=== PATIENT | female | born 2000 | race Hispanic/Latino ===

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

== ENCOUNTER 2023-05-24 11:59 | Emergency (ER) | payer MEDICAID, SELFPAY ==
[2023-05-24 12:00] VITALS: RESP 101
[2023-05-24 12:01] VITALS: BP 114/84; PULSE 139; RESP 16; TEMP 36.2; O2SAT 97; BMI 23.6
[2023-05-24] MEDS: 0.9% Normal Saline (1000mL) 1,000 ML 1000 ML IV (13:57)
[2023-05-24] MEDS: DiphenhydrAMINE 50 MG/ML Syringe 25 MG IV (13:57)
[2023-05-24] MEDS: MethylPREDNISolone 125 MG/2 ML Vial IV (13:57)
[2023-05-24] MEDS: Ondansetron 4 MG/2 ML Vial IV (13:57)
[2023-05-24] MEDS: Famotidine 200 MG/20 ML MDV 20 MG in 0.9% Normal Saline (Pres. free 8 ML 300 MG IV (14:15)
[2023-05-24 14:16] LABS: Anion Gap 10 (5-15); BUN 8 mg/dL (7-18); Calcium,Total 9.3 mg/dL (8.5-10.1); Chloride 98 mmol/L (98-107); EST Glomerular Filtration Rate 75 mL/min (>60); Est Glom Filt Rate - Afr Amer 91 mL/min (>60); Estimated Creatinine Clearance 67.72 ml/min; Glucose 110 mg/dL (74-106); Potassium 3.2 mmol/L (3.5-5.1); Sodium Level 135 mmol/L (136-145)
[2023-05-24 14:18] LABS: Absolute Lymphocyte Count 8.92 X10^3/uL (0.83-4.51); Absolute Neutrophil Count 2.6 X10^3/uL (2.0-7.7); Basophil# 0.07 X10^3/uL; Basophil% 0.5 % (0-1); Eosinophil# 0.09 X10^3/uL; Eosinophils% 0.7 % (0-5); Hematocrit 41.6 % (37-47); Hemoglobin 14.4 g/dL (12.0-15.0); Lymphocyte # 8.92 X10^3/ul (0.83-4.51); Lymphocyte % 65.3 % (19-41); Mean Corp Hgb Conc 34.6 g/dL (32-36); Mean Corpuscular Hgb 28.8 pg (27.0-32.0); Mean Corpuscular Volume 83.2 fL (81-99); Mean Platelet Vol. 10.6 fl (6.2-12.0); Monocyte# 1.86 X10^3/uL; Monocyte% 13.6 % (0-10); NRBC Flagged by Analyzer 0 % (0-5); Neutrophil % 19.1 % (47-70); POSITIVE DIFFERENTIAL YES; POSITIVE MORPHOLOGY YES; Platelet Count 217 K/mm3 (150-450); White Blood Count 13.7 K/mm3 (4.4-11.0)
[2023-05-24 14:30] LABS: Differential Indicated SCAN CRITERIA MET
[2023-05-24 16:00] VITALS: BP 115/72; PULSE 83; RESP 17; TEMP 36.7; O2SAT 99
--- NOTE | 2023-05-24 16:59 | EDS_ITS ---
HPI History of Present Illness Chief Complaint: Allergic Reaction Detail of Chief Complaint: Allergic reaction and viral-like symptoms Informant: patient Onset/Context/Timing Onset: Days (Viral-like symptoms started 3 to 4 days ago with Tmax of 102 ?F. She also has hives.) Context: Sudden Onset Timing: Continuous and Waxes and wanes Quality: Viral upper respiratory symptoms with GI component and urticaria Location: respiratory and generalized Current Severity: Mild Maximum Severity: Moderate Worsened by: itching and coughing Relieved by: Nothing Associated Symptoms Associated Symptoms: Nausea Narrative Narrative: Patient is a 22-year-old who presents with viral-like symptoms which include rhinorrhea, congestion, sore throat, slight cough that is nonproductive with nausea and mild diarrhea. She does complain of myalgias and arthralgias. She has had an elevated temperature of 102.3 ?F. She does complain of headache. She denies photophobia, neck pain or neck stiffness. She does endorse rash. The rash is raised discolored and pruritic. Patient does complain of cough. The cough is nonproductive. She denies wheezing. She has history of asthma. She has had bronchospasm when she has been ill. She denies dysuria, frequency, urgency or hematuria. Prior similar symptoms: Yes Recent Illness/Hospitalization: No PFSH PFSH Medical History Asthma Medical History no medical history Home Medications albuterol sulfate 90 mcg/actuation aerosol inhaler 1 - 2 puff inhalation Q6H PRN PRN Asthma 06/16/20 [History Last Taken Unknown] diphenhydramine HCl 25 mg capsule (Benadryl) 25 mg PO TID #10 caps 05/24/23 [Rx Last Taken Unknown] famotidine 20 mg tablet (Pepcid) 20 mg PO BID #7 tabs 05/24/23 [Rx Last Taken Unknown] prednisone 20 mg tablet 60 mg (3 x 20 mg) PO DAILY #12 TABLETS 05/24/23 [Rx Last Taken Unknown] Allergy/AdvReac Type Severity Reaction Status Date / Time No Known Allergies Allergy Verified 05/24/23 12:00 Surgical History Hx of removal of growth plate Surgical History no surgical history Social History household members: family Smoking Status: Former smoker alcohol intake: never what type of physical activity do you participate in: other frequency: daily duration: 30-45 minutes/day ROS ROS ED Constitutional Constitutional ED: Reports chills, fever(s) and sweats Eyes Eyes: Denies blurry vision, change in vision or diplopia ENT ENT ED: Reports rhinorrhea and sore throat; Denies ear pain Cardiovascular Cardiovascular: Reports palpitations; Denies chest pain, orthopnea, paroxysmal nocturnal dyspnea or racing heartbeat Respiratory/Chest Respiratory/Chest: Reports cough and dyspnea; Denies dyspnea on exertion, orthopnea, paroxysmal nocturnal dyspnea or sputum Gastrointestinal Gastrointestinal: Reports abdominal pain, diarrhea and nausea Genitourinary Genitourinary ED: Denies dysuria, hematuria or urinary frequency Musculoskeletal Musculoskeletal: Reports arthralgias and myalgias; Denies back pain Integumentary Reports rash Neurologic Neurologic: Reports headache(s) and weakness; Denies paresthesias Endocrine Endocrinology: Denies cold intolerance or heat intolerance Hematologic/Lymphatic Hematologic/Lymphatic: Reports systems reviewed and no addt'l complaints, except as documented EXAM Physical Exam Const Vital Signs: 05/24/23 12:01 05/24/23 12:00 Temperature 97.2 F L Temperature Source Temporal Pulse Rate 139 H Respiratory Rate 16 101 H Blood Pressure 114/84 H Blood Pressure Mean 94 Pulse Ox 97 Oxygen Delivery Method Room Air Positive well nourished and well developed Constitutional Narrative: Patient appears ill and pale. She does not appear toxic. She is not cyanotic. General Appearance ED: well developed and pallor; Negative for cyanotic, diaphoretic or NAD HEENT Reports moist mucous membranes HEENT Narrative: Head is normocephalic and atraumatic. Ears are normal. Nares are patent. Posterior pharynx is without erythema or exudate. Eyes PERRL and EOMs intact bilaterally General Eye ED: Negative for pale conjunctiva or scleral icterus Neck no lymphadenopathy, supple and no JVD Resp normal respiratory effort and clear to auscultation bilaterally Cardio regular rhythm, S1 normal heart sound, S2 normal heart sound and no murmurs Rate: tachycardic GI normal to inspection, nondistended, normoactive bowel sounds, non-tender, non- distended and no masses; Negative for hepatosplenomegaly Back/Spine no CVA tenderness Cervical Spine: Negative for cervical spine tenderness Thoracic Spine / Upper Back: Negative for thoracic spinal tenderness Lumbar Spine / Lower Back: Negative for lumbar spinal tenderness Extremity normal to inspection General Extremety ED: Negative for edema or tenderness General Extremity: Negative for edema Neuro oriented x3, CN's II-XII intact bilaterally and no sensory deficits noted Sensorium / Orientation: alert Psych mental status grossly normal Skin no wounds and skin turgor normal General Skin Exam: elasticity normal and pallor; Negative for jaundice Rashes: rashes noted MDM MDM MDM Narrative Medical decision making narrative: Patient presents with viral-like symptoms and is tachycardic. Because she has respiratory symptoms rapid antigen for influenza, COVID and RSV was obtained. Patient was treated with Pepcid, Solu-Medrol and Benadryl for her hives. She pr esently does not have a physician since she relocated to the area. Her friend has seen Dr. Felipe would like her referred to Dr. Felipe. Lab Data Attestation: I reviewed the patient's lab results. Lab results narrative: White count is elevated at 13.4 with lymphocytosis. This consistent with a viral infection. Rapid antigen for influenza, flu and RSV were negative. Labs: Laboratory Results - last 24 hr 05/24/23 12:05 WBC 13.7 H RBC 5.00 Hgb 14.4 Hct 41.6 MCV 83.2 MCH 28.8 MCHC 34.6 RDW Std Deviation 39.0 RDW Coeff of Ryley 13.0 Plt Count 217 MPV 10.6 Immature Gran % (Auto) 0.800 Neut % (Auto) 19.1 L Lymph % (Auto) 65.3 H [place] % (Auto) 13.6 H Eos % (Auto) 0.7 Baso % (Auto) 0.5 Absolute Neuts (auto) 2.6 Absolute Lymphs (auto) 8.92 H Nucleated RBC % 0 Diff Path Review May foll Sodium 135 L Potassium 3.2 L Chloride 98 Carbon Dioxide 27.0 Anion Gap 10 BUN 8 Creatinine 1.00 Estim Creat Clear Calc 67.72 Est GFR (MDRD) Af Amer 91 Est GFR (MDRD) Non-Af 75 BUN/Creatinine Ratio 8.0 L Glucose 110 H Calcium 9.3 Treatment and Re-Evaluation :: Patient was reevaluated at 1700. Her hives has essentially resolved 95+ percent. Plan is to discharge prescription for prednisone, Pepcid and Benadryl. She was referred to Dr. Felipe. She will need testing to determine the cause of her hives. Heart rate reduced from 1 39-83 after IV fluid hydration. Discharge Plan Triage Chief Complaint: Allergic Reaction ED Provider: Nils Ferrera Dx/Rx/DC Orders Clinical Impression: Systemic viral illness, Fever in adult, Sinus tachycardia seen on threat monitoring analyst, Urticaria of unknown origin, Acute dehydration Instructions: ED Hives (Adult), ED Viral Syndrome (Adult) Prescriptions: New prednisone 20 mg tablet 60 mg PO DAILY Qty: 12 0RF famotidine [Pepcid] 20 mg tablet 20 mg PO BID Qty: 7 0RF diphenhydramine HCl [Benadryl] 25 mg capsule 25 mg PO TID Qty: 10 0RF No Action albuterol sulfate 1 PUFF inhaler 1 - 2 puff INHALATION Q6H PRN PRN (Reason: Asthma) Primary Care Provider: Care Physician,No Primary Referrals: Kishor Felipe MD [Non-Staff] - 5-7 Days Care Physician,No Primary [Primary Care Provider] - Disposition Disposition: Home, Self Care
--- OUTSIDE RECORDS SUMMARY | 2023-05-24 17:21 | XMS RPT_ITS | CCD ---
Author Name Unknown Address [id number] [place] [address] Organization [facility] Care Team Providers Care Clinical Data Programmer Name Role Phone Ebenezer Eisenberg Primary Care Provider [phone] EBENEZER EISENBERG Attending Unavailable EBENEZER EISENBERG Primary Care Unavailable REFERRED, SELF Referring Unavailable Rubi Verduzco MD Primary Care Provider Unknown, Unknown Unavailable Unavailable Unavailable Unavailable AA NO PCP, NO PCP Primary Care Unavailable CARLITO CARTER DO Admitting Unavailabl CARLITO Edouard DO Attending Unavailabl e AA NO PCP, NO PCP Primary Care Unavailable NATALEE LOPEZ~[id number], NATALEE Fortune Admitting Unavailable NATALEE LOPEZ~[id number], NATALEE Fortune Attending Unavailable Rubi Verduzco MD Primary Care Provider [phone] PRUDENCE RODRIGUEZ Attending Unavailable RICARDO, RUBI Primary Care Unavailable PRUDENCE RODRIGUEZ Attending Unavailable RICARDO, RUBI Primary Care Unavailable MALDONADO BLUM Attending Unavailable RICARDO, RUBI Primary Care Unavailable RICARDO, RUBI Primary Care Unavailable RICARDO RUBI Attending Unavailable PRUDENCE RODRIGUEZ Attending Unavailable RICARDO, RUBI Primary Care Unavailable RICARDO, RUBI Primary Care Unavailable LOPARO, MAETINEE Referring Unavailable RICARDO, RUBI Primary Care Unavailable UNKNOWN, UNKNOWN Primary Care Unavailable Bryanna Delatorre Referring Unavailable Bryanna Delatorre Attending Unavailable Bryanna Delatorre Attending Unavailable UNKNOWN, UNKNOWN Primary Care Unavailable Bryanna Delatorre Referring Unavailable Ms. Mary Sheehan Referring U joan Sehehan, Ms. Mary Aguirre Attending U callumable UNKNOWN, UNKNOWN Primary Care Unavailable UNKNOWN, UNKNOWN Primary Care Unavailable Banerjee , Mr. Kishor Soni Referring Unava ilable Chriss Marie, Mr. Kishor Soni Attending [facility] Medications Current Medications Medication Drug Class(es) Dates Sig (Normalized) Sig (Original) albuterol 0.83 mg/ml inhalation solution (12 sources) beta2-Adrenergic Agonist Start: 08-04-2022 End: 08-04-2023 albuterol (2.5 MG/3ML) 0.083% nebulizer solution Indications: Mild persistent asthma with acute exacerbation Take 3 mL (2.5 mg) by nebulization in the morning and 3 mL (2.5 mg) at noon and 3 mL (2.5 mg) in the evening. 75 mL 11 08/04/2022 08/04/2023 Active Completed/Discontinued Medications Medication Drug Class(es) Dates Sig (Normalized) Sig (Original) aluminum chloride 200 mg/ml topical solution (1 source) Start: 10-30-2017 End: 06-07-2022 aluminum chloride (DRYSOL) 20 % external solution Apply thin layer to axilla area bilaterally daily to bid 0 10/30/2017 06/07/2022 Discontinued (Discontinued by Patient) Problems Active Problems Problem Classification Problem Date Documented Date Episodic/Chronic Allergic reactions (2 sources) Allergy, unspecified, initial encounter; Translations: [Allergy, unspecified, initial encounter] Onset: 11-07-2022 Episodic Anxiety disorders (12 sources) Posttraumatic stress disorder; Translations: [Post-traumatic stress disorder, unspecified] Onset: 10-29-2017 02-11-2018 Chronic Asthma (13 sources) Asthma; Translations: [Unspecified asthma, uncomplicated] Onset: 01-21-2013 02-11-2018 Chronic Attention-deficit, conduct, and disruptive behavior disorders (10 sources) Attention deficit hyperactivity disorder, combined type; Translations: [Attention-deficit hyperactivity disorder, combined type] Onset: 12-19-2017 02-11-2018 Chronic Attention-deficit, conduct, and disruptive behavior disorders (2 sources) Attention-deficit hyperactivity disorder, combined type; Translations: [Attention-deficit hyperactivity disorder, combined type] Onset: 09-05-2022 Chronic Cardiac dysrhythmias (2 sources) Palpitations; Translations: [Palpitations] Onset: 11-14-2022 Episodic Malaise and fatigue (2 sources) Other fatigue; Translations: [Other fatigue] Onset: 11-07-2022 Episodic Mood disorders (5 sources) Recurrent major depressive episodes, moderate ; Translations: [Major depressive disorder, recurrent, moderate] Onset: 11-07-2022 Chronic Mycoses (5 sources) Opportunistic mycosis; Translations: [Candidiasis of unspecified site] Episodic Nonspecific chest pain (2 sources) Chest pain; Translations: [Chest Pain] Onset: 11-13-2022 Episodic Other circulatory disease (5 sources) Pulmonary congestion ; Translations: [Other symptoms involving respiratory system and chest] Episodic Other lower respiratory disease (2 sources) Cough; Translations: [Cough] Episodic Other upper respiratory infections (10 sources) Upper respiratory infection; Translations: [Acute upper respiratory infections of unspecified site] Episodic Otitis media and related conditions (5 sources) Acute right otitis media; Translations: [Unspecified otitis media] Episodic Residual codes; unclassified (2 sources) Generalized aches and pains; Translations: [Generalized pain] Episodic Unclassified (1 source) NO SHOW Past or Other Problems Problem Classification Problem Date Documented Da te Episodic/Chronic Administrative/social admission (2 sources) Persons encountering health services in other specified circumstances; Translations: [Persons encountering health services in other specified circumstances] Onset: 08-04-2022 Episodic Fluid and electrolyte disorders (1 source) Dehydration; Translations: [DEHYDRATION] Onset: 05-25-2022 Episodic Genitourinary symptoms and ill-defined conditions (2 sources) Dysuria; Translations: [Dysuria] Onset: 08-04-2022 Episodic Mood disorders (5 sources) Mood disorders Onset: 09-29-2022 Resolved: 11-07-2022 09-29-2022 Nausea and vomiting (2 sources) Nausea with vomiting, unspecified; Translations: [NAUSEA WITH VOMITING UNSPECIFIED] Onset: 05-25-2022 Episodic Nonmalignant breast conditions (2 sources) Other specified disorders of breast; Translations: [Other specified disorders of breast] Onset: 08-04-2022 Episodic Other gastrointestinal disorders (1 source) Diarrhea, unspecified; Translations: [DIARRHEA UNSPECIFIED] Onset: 05-25-2022 Episodic Substance-related disorders (1 source) Cannabis use, unspecified, uncomplicated; Translations: [CANNABIS USE UNS UNCOMPLICATED] Onset: 05-25-2022 Episodic Results Test Name Value Interpretation Reference Range Facil ity Vital Signs Date Time Vital Sign Value Performing Clinician Facility 02-05-2023 09:59-0400 Body temperature 98.9 [degF] Unknown Unknown [facility] Work Phone: 02-05-2023 09:59-0400 Body weight 64.92 kg Unknown Unknown [facility] Work Phone: 02-05-2023 09:59-0400 Diastolic blood pressure 76 mm[Hg] Unknown Unknown [facility] Work Phone: 02-05-2023 09:59-0400 Heart rate 119 /min Unknown Unknown [facility] Work Phone: 02-05-2023 09:59-0400 SaO2% (BldA) [Mass fraction] 95 % Unknown Unknown [facility] Work Phone: 02-05-2023 09:59-0400 Systolic blood pressure 119 mm[Hg] Unknown Unknown [facility] Work Phone: 11-06-2022 11:07-0400 Body mass index (BMI) [Ratio] Medical Reason Not Done Unknown Unknown [facility] Work Phone: 11-06-2022 11:07-0400 Body temperature 98.3 [degF] Unknown Unknown [facility] Work Phone: 11-06-2022 11:07-0400 Body weight 67.59 kg Unknown Unknown [facility] Work Phone: 11-06-2022 11:07-0400 Diastolic blood pressure 83 mm[Hg] Unknown Unknown [facility] Work Phone: 11-06-2022 11:07-0400 Heart rate 71 /min Unknown Unknown [facility] Work Phone: 11-06-2022 11:07-0400 SaO2% (BldA) [Mass fraction] 97 % Unknown Unknown [facility] Work Phone: 11-06-2022 11:07-0400 Systolic blood pressure 123 mm[Hg] Unknown Unknown [facility] Work Phone: 10-14-2022 10:34-0400 Body temperature 98.7 [degF] Unknown Unknown [facility] Work Phone: 10-14-2022 10:34-0400 Body weight 65.32 kg Unknown Unknown [facility] Work Phone: 10-14-2022 10:34-0400 Diastolic blood pressure 86 mm[Hg] Unknown Unknown [facility] Work Phone: 10-14-2022 10:34-0400 Heart rate 90 /min Unknown Unknown [facility] Work Phone: 10-14-2022 10:34-0400 Systolic blood pressure 114 mm[Hg] Unknown Unknown [facility] Work Phone: 10-09-2022 14:29-0400 Body temperature 98.2 [degF] Unknown Unknown [facility] Work Phone: 10-09-2022 14:29-0400 Body weight 66.68 kg Unknown Unknown [facility] Work Phone: 10-09-2022 14:29-0400 Diastolic blood pressure 84 mm[Hg] Unknown Unknown [facility] Work Phone: 10-09-2022 14:29-0400 Heart rate 110 /min Unknown Unknown [facility] Work Phone: 10-09-2022 14:29-0400 SaO2% (BldA) [Mass fraction] 96 % Unknown Unknown [facility] Work Phone: 10-09-2022 14:29-0400 Systolic blood pressure 120 mm[Hg] Unknown Unknown [facility] Work Phone: Encounters Encounter Date Encounter Type Care Provider Facility Start: 02-05-2023 Chart Update Unknown Unknown [facility] Work Phone: Start: 02-05-2023 ambulatory Ms. Mary Sheehan Facility:[id number] Start: 02-05-2023 Office outpatient vi sit 25 minutes Unknown Unknown [facility] Work Phone: Start: 01-24-2023 Criselda Verduzco MD Work Phone: [facility] Procedures Date Procedure Procedure Detail Performing Clinician Start: 11-13-2022 Ecg routine ecg w/le ast 12 lds trcg only w/o i&r Severiano Castaneda CABLE LACER - HAND CULTIVATOR Work Phone: Plan of Treatment Date Care Activity Detail Author Start: 2052 Zoster Vaccines (1 of 2) Zoster Vaccines (1 of 2) [facility] Start: 08-17-2024 DTaP/Tdap/Td Vaccines (7 - Td or Tdap) DTaP/Tdap/Td Vaccines (7 - Td or Tdap) [facility] Start: 08-17-2024 Urine microalbumin profile DTAP,TDAP,TD (7 - Td or Tdap) [facility] Start: 06-07-2023 ANNUAL PCP TEAM CHRONIC DISEASE VISIT ANNUAL PCP TEAM CHRONIC DISEASE VISIT [facility] Start: 05-09-2023 Depresssion Monitoring Depresssion Monitoring [facility] Start: 04-01-2023 Depresssion Monitoring Depresssion Monitoring [facility] Start: 03-06-2023 End: 03-06-2023 Patient encounter procedure 03/06/2023 11:40 AM EDT Office Visit [facility] [address] [place] [address] [address] [place] [id number] Rubi Verduzco MD [address] [place] [address] [address] [place], [place] [address] [facility] Start: 01-19-2023 Influenza vaccination [facility] Start: 12-05-2022 End: 12-05-2022 Patient encounter procedure [facility] Start: 11-22-2022 End: 11-22-2022 Patient encounter procedure 11/22/2022 8:30 AM EDT Office Visit [facility] [address] [place] [phone] Marisol Mckinnon MD [address] [facility] [place], [place] [id number] [facility] Start: 11-14-2022 End: 11-14-2022 Telemedicine consultation with patient 11/14/2022 1:40 PM EDT Telemedicine [facility] [address] [place] [address] Prudence Rodriguez, CABLE LACER - HAND CULTIVATOR [address] [place], [place] [id number] [facility] Start: 11-10-2022 End: 11-10-2022 Telemedicine consultation with patient 11/10/2022 Telemedicine Family Medicine Rubi Verduzco MD [address] [facility] [address] [place], [place] [address] [facility] Start: 10-11-2022 End: 10-11-2022 Patient encounter procedure 10/11/2022 Office Visit Plastic Surgery Marisol Mckinnon MD [address] [facility] [address] [place], [place] [address] [facility] Start: 09-08-2022 End: 09-08-2022 Patient encounter procedure 09/08/2022 Office Visit Plastic Surgery Juliane Gonzalez MD [address] [facility] [address] [place], [place] [id number] [facility] Start: 05-21-2022 DEPRESSION ASSESSMENT DEPRESSION ASSESSMENT [facility] Start: 01-19-2022 Influenza vaccination INFLUENZA (#1) [facility] Start: 07-23-2021 CHLAMYDIA SCREENING (18-24) CHLAMYDIA SCREENING (18-24) [facility] Start: 07-23-2021 GC (GONORRHEA) SCREENING (18-24) GC (GONORRHEA) SCREENING (18-24) [facility] Start: 2021 DTaP/Tdap/Td Vaccines (1 - Tdap) DTaP/Tdap/Td Vaccines (1 - Tdap) [facility] Start: 09-15-2020 COVID-19 VACCINE (2 - Pfizer series) COVID-19 VACCINE (2 - Pfizer series) [facility] Start: 2020 HEPATITIS C SCREENING HEPATITIS C SCREENING [facility] Start: 2020 Hepatitis C screening Hepatitis C Screening [facility] Start: 2020 HIV SCREENING HIV SCREENING [facility] Start: [address] [facility] Start: 2016 PEDS TO ADULT TRANSITION ANNUAL ASSESSMENT PEDS TO ADULT TRANSITION ANNUAL ASSESSMENT [facility] Start: 2014 PEDS TO ADULT TRANSITION INITIAL DISCUSSION PEDS TO ADULT TRANSITION INITIAL DISCUSSION [facility] Start: 2013 HPV Vaccines (1 - 2-dose series) HPV Vaccines (1 - 2-dose series) [facility] Start: 2008 PNEUMOCOCCAL (1 - PCV) PNEUMOCOCCAL (1 - PCV) [facility] Start: 2006 ASTHMA CONTROL TEST ASTHMA CONTROL TEST [facility] Start: 2004 ASTHMA ACTION PLAN ASTHMA ACTION PLAN [facility] Start: 2003 MMR Vaccines (1 of 1 - Standard series) MMR Vaccines (1 of 1 - Standard series) [facility] Start: 2003 Varicella vaccination Varicella Vaccines (1 of 2 - 2-dose childhood series) [facility] Start: 2002 COVID-19 Vaccine (#1) COVID-19 Vaccine (#1) [facility] Start: 2002 Hepatitis B Vaccines (1 of 3 - 3-dose series) Hepatitis B Vaccines (1 of 3 - 3-dose series) [facility] Start: 2002 HIV screening HIV Screening [facility] Start: 2002 Screening for Chlamydia trachomatis Chlamydia and Gonorrhea Screening [facility] Immunizations Immunization Date Immunization Notes Care Provider Fa cili 04-13-2020 meningococcal B vacc ine, recombinant, OMV, adjuvanted Jaleesa Steinberg PA-C Work Phone: [facility] Work Phone: 02-20-2020 influenza, injectabl e, quadrivalent, preservative free Jaleesa Steinberg PA-C Work Phone: [facility] Work Phone: 02-20-2020 meningococcal B vacc ine, recombinant, OMV, adjuvanted Jaleesa Steinberg PA-C Work Phone: [facility] Work Phone: 02-20-2020 influenza virus vacc ine, unspecified formulation Juliane Gonzalez MD Work Phone: [facility] 02-06-2019 meningococcal polysaccharide (groups A, C, Y and W-135) diphtheria toxoid conjugate vaccine (MCV4P) Jaleesa Steinberg PA-C Work Phone: [facility] Work Phone: 02-25-2015 influenza, seasonal, injectable Jaleesa Steinberg PA-C Work Phone: [facility] Work Phone: 12-17-2014 human papilloma viru s vaccine, quadrivalent Jaleesa Steinberg PA-C Work Phone: [facility] Work Phone: 08-17-2014 human papilloma viru s vaccine, quadrivalent Jaleesa Steinberg PA-C Work Phone: [facility] Work Phone: 08-17-2014 meningococcal polysaccharide (groups A, C, Y and W-135) diphtheria toxoid conjugate vaccine (MCV4P) Jaleesa Steinberg PA-C Work Phone: [facility] Work Phone: 08-17-2014 tetanus toxoid, redu cristiana diphtheria toxoid, and acellular pertussis vaccine, adsorbed Jaleesa Steinberg PA-C Work Phone: [facility] Work Phone: 06-18-2014 human papilloma viru s vaccine, quadrivalent Jaleesa Steinberg PA-C Work Phone: [facility] Work Phone: 02-22-2010 influenza, seasonal, injectable, preservative free Jaleesa Maryan BUSTAMANTE Work Phone: [facility] Work Phone: 04-14-2009 influenza, seasonal, injectable, preservative free Jaleesa Maryan BUSTAMANTE Work Phone: [facility] Work Phone: 04-14-2009 novel influenza-H1N1 -09, preservative-free, injectable Jaleesa Maryan BUSTAMANTE Work Phone: [facility] Work Phone: 08-20-2008 hepatitis A vaccine, pediatric/adolescent dosage, 2 dose schedule Jaleesa Steinberg PA-C Work Phone: [facility] Work Phone: 03-16-2008 influenza virus vacc ine, whole virus Jaleesajessica Steinberg PA-C Work Phone: [facility] Work Phone: 11-07-2007 diphtheria, tetanus toxoids and acellular pertussis vaccine, unspecified formulation Jaleesa Steinberg PA-C Work Phone: [facility] Work Phone: 11-07-2007 measles, mumps and rubella virus vaccine Jaleesajessica Steinberg PA-C Work Phone: [facility] Work Phone: 11-07-2007 poliovirus vaccine, inactivated Jaleesajessica Steinberg PA-C Work Phone: [facility] Work Phone: 11-07-2007 varicella virus vaccine Flora hugh Steinberg PA-C Work Phone: [facility] Work Phone: 01-16-2007 hepatitis A vaccine, pediatric/adolescent dosage, 2 dose schedule Jaleesa Steinberg PA-C Work Phone: [facility] Work Phone: 12-04-2006 haemophilus influenz ae type b vaccine, PRP-T conjugate Jaleesa Steinberg PA-C Work Phone: [facility] Work Phone: 11-01-2004 diphtheria, tetanus toxoids and acellular pertussis vaccine, unspecified formulation Jaleesa Steinberg PA-C Work Phone: [facility] Work Phone: 10-14-2003 hepatitis B vaccine, pediatric or pediatric/adolescent dosage Jaleesa Steinberg PA-C Work Phone: [facility] Work Phone: 09-16-2003 hepatitis B vaccine, pediatric or pediatric/adolescent dosage Jaleesa Steinberg PA-C Work Phone: [facility] Work Phone: 09-16-2003 measles, mumps and rubella virus vaccine Jaleesa Steinberg PA-C Work Phone: [facility] Work Phone: 09-16-2003 varicella virus vaccine Flora hugh Steinberg PA-C Work Phone: [facility] Work Phone: 04-09-2003 hepatitis B vaccine, pediatric or pediatric/adolescent dosage Jaleesa Steinberg PA-C Work Phone: [facility] Work Phone: 01-02-2003 diphtheria, tetanus toxoids and acellular pertussis vaccine, unspecified formulation Jaleesa Steinberg PA-C Work Phone: [facility] Work Phone: 01-02-2003 haemophilus influenz ae type b vaccine, PRP-T conjugate Jaleesa Steinberg PA-C Work Phone: [facility] Work Phone: 01-02-2003 pneumococcal conjuga te vaccine, 7 valent Jaleesa Steinberg PA-C Work Phone: [facility] Work Phone: 01-02-2003 poliovirus vaccine, inactivated Jaleesa Steinberg PA-C Work Phone: [facility] Work Phone: 2002 diphtheria, tetanus toxoids and acellular pertussis vaccine, unspecified formulation Jaleesa Steinberg TYSON-C Work Phone: [facility] Work Phone: 2002 haemophilus influenz ae type b vaccine, PRP-T conjugate Jaleesa Steinberg TYSON-C Work Phone: [facility] Work Phone: 2002 pneumococcal conjuga te vaccine, 7 valent Jaleesa Maryan TYSON-C Work Phone: [facility] Work Phone: 2002 poliovirus vaccine, inactivated Jaleesa MEHTA-C Work Phone: [facility] Work Phone: 2002 diphtheria, tetanus toxoids and acellular pertussis vaccine, unspecified formulation Jaleesa MEHTA-Mulu Work Phone: [facility] Work Phone: 2002 haemophilus influenz ae type b vaccine, PRP-T conjugate Jaleesajessica Steinberg TYSON-C Work Phone: [facility] Work Phone: 2002 pneumococcal conjuga te vaccine, 7 valent Jaleesa MEHTA-C Work Phone: [facility] Work Phone: 2002 poliovirus vaccine, inactivated Jaleesa Maryan TYSON-C Work Phone: [facility] Work Phone: 2002 hepatitis B vaccine, pediatric or pediatric/adolescent dosage Jaleesa MEHTA-C Work Phone: [facility] Work Phone: 2002 hepatitis B vaccine, pediatric or pediatric/adolescent dosage Jaleesa MEHTA-C Work Phone: [facility] Work Phone: Payers Date Payer Category Payer Medicaid [id number] 2002 Unknown [id number] 2002 Unknown [id number] 2002 Unknown [id number] 2002 Unknown [id number] 2002 Unknown [id number] 2002 Unknown [id number] 2002 Unknown [id number] 1959 Unknown [id number] Unknown [facility] Social History Date Type Detail Facility Start: 05-31-2017 End: 08-04-2022 Tobacco smoking status COIS Never smoked tobacco [facility] Start: 05-31-2017 End: 08-04-2022 Tobacco use and exposure Smokeless tobacco non-user [facility] Start: 04-26-2021 Alcohol intake Lifetime non-d essie (finding) [facility] Start: 07-17-2019 History SDOH Alcohol Frequency 1 [facility] Start: 09-28-[address] [facility] Start: 2002 Sex Assigned At Not on file [facility] Start: 08-04-2022 Alcohol intake Ex-drinker (finding) [facility] Start: 2002 Sex Assigned At Female S [facility] Start: 08-26-2022 End: 11-13-2022 Exposure to SARS-CoV-2 (event) Not sure [facility] Start: 09-29-2022 End: 11-07-2022 Alcohol intake Current drinker of alcohol (finding) [facility] Start: 09-05-2022 [facility] Start: 11-07-2022 History of Social function [facility] Start: 11-07-2022 Tobacco use panel [facility] Adolescent depressio n screening assessment 15 [facility] Start: 08-01-2022 Gender identity Identifies as female gender (finding) [facility] Start: 08-01-2022 Sexual orientation Bisexual (finding ) [facility] NEGATED: Highlighted rowStart: NINF History of tobacco use Passive smoker [facility] Clinical Notes 06-07-2022 to 02-02-2023 Rubi Verduzco MD - 09/29/2022 9:20 AM EDTTelephone Encounter - Genet Javed MA - 08/04/2022 2:26 PM EDTTelephone Encounter - Genet Javed MA - 08/04/2022 2:26 PM EDT Note Date & Type Note Facility 02-02-2023 History of Presen t illness Narrative Patient states she has been coughing and sneezing for 3 weeks. Patient presents she woke up with body aches, chills, sweats, congestion, and fever the last 3 days. States that she slept all day yesterday. Has been taking DayQuil and NyQuil intermittently and leftover Bromfed/Tessalon without relief. Patient denies chest pain, shortness of breath, abdominal pain, nausea/vomiting/diarrhea, neck pain, dizziness, headache, and any rashes at this time. 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 Took a rapid COVID test yesterday which was negative. [facility] Work Phone: 11-13-2022 Note I saw this patient v bakari briefly as the Provider in Triage to establish acuity and develop basic plan of care. A more thorough history and physical exam will be documented by treating physician and/or TOYIN in the emergency department. History: Patient is a 22-year-old female, presents to the emergency department with left-sided chest pain, described as stabbing, also with palpitations like my heart is not beating right ., States that the symptoms make it hard to breathe. Denies any fevers, chills, does endorse cough. Does report nausea with one episode of vomiting yesterday. Denies any abdominal pain. Denies any syncope, denies any hemoptysis, unilateral leg swelling. Denies any history of PE or DVT. States that she has a family history of SVT in her mother. GENERAL: The patient appears nourished and normally developed. Vital signs as documented. EYES: Head exam is unremarkable. No scleral icterus or orbital trauma noted. HEENT: Mucous membranes moist. Nares patent without copious rhinorrhea. No enlarged lymphadenopathy. LUNGS: Lungs are clear to auscultation, without any respiratory distress. CARDIAC: Rhythm is regular. No dysrythmias or murmurs. ABDOMEN: Nontender with no obvious masses, and no peritoneal signs. EXTREMITIES: Non edematous, with no obvious deformities. SKIN: Good color, with no significant rashes. No pallor. NEURO: No obvious neurological deficits, normal sensation and strength bilaterally. patient able to ambulate Plan: -IV, EKG, lab work, imaging Patient awaiting room in main ED, see ED provider note for full H and P, evaluation, disposition. Comment: Please note this report has been produced using speech recognition software and may contain errors related to that system including errors in grammar, punctuation, and spelling, as well as words and phrases that may be inappropriate. If there are any questions or concerns please feel free to contact the dictating provider for clarification. Severiano Castaneda APRN - ANDRZEJ 11/13/22 [facility] 11-06-2022 History of Presen t illness Narrative Patient presents with sinus congestion/drainage, productive cough, fever/chills, and aches for the the last 3-4 days. Patient reports trying OTC medications including Acetaminophen/Ibuprofen and dayquil with minimal relief. She reports that she does have asthma. Patient denies chest pain, shortness of breath, abdominal pain, nausea/vomiting/diarrhea, neck pain, dizziness, and any rashes at this time. [facility] Work Phone: 10-14-2022 History of Presen t illness Narrative Patient presents with persistent sinus congestion, productive cough, chest congestion, and right ear pain for the last 2-3 weeks. She was seen last week for the same and azithromycin was sent in to her pharmacy, but she states that she never picked it up. She states that she has been taking OTC dayquil with moderate relief. Patient denies fever/chills, night sweats, abdominal pain, nausea/vomiting/diarrhea, muscle aches, chest pain, shortness of breath, neck pain, headache, dizziness, and any rashes at this time. [facility] Work Phone: 09-29-2022 History of Presen t illness Narrative Images from the original note were not included. [place] [address] [facility] [id number] Dept: [phone] Dept Visit type: Established patient Reason for Visit: Anxiety Patient was seen today via Telehealth by agreement and consent in light of the current COVID-19 pandemic. I used the following Telehealth technology: Audio and video capabilities Patient location: Home. This patient encounter is appropriate and reasonable under the circumstances given the patient's particular presentation at this time. The patient has been advised of the potential risks and limitations of this mode of treatment (including but not limited to the absence of in-person examination) and has agreed to be treated in a remote fashion in spite of them. Any and all of the patient's/patient's family's questions on this issue have been answered and I have made no promises or guarantees to the patient. The patient has also been advised to contact this office for worsening conditions or problems, and seek emergency medical treatment and/or call 911 if the patient deems either necessary. The patient stated that they are currently in the [facility]. If the patient is a minor, permission has been obtained by the parent or guardian for the patient to receive medical care at this visit. Assessment and Plan 1. Generalized anxiety disorder - venlafaxine XR (Effexor XR) 75 MG 24 hr capsule; Take 1 capsule (75 mg) by mouth daily. Take with food., Starting Sun09/29/2022, Until Sun11/28/2022, Normal 2. Attention deficit hyperactivity disorder (ADHD), combined type - venlafaxine XR (Effexor XR) 75 MG 24 hr capsule; Take 1 capsule (75 mg) by mouth daily. Take with food., Starting Sun09/29/2022, Until Sun11/28/2022, Normal 3. Moderate episode of recurrent major depressive disorder (HCC) - venlafaxine XR (Effexor XR) 75 MG 24 hr capsule; Take 1 capsule (75 mg) by mouth daily. Take with food., Starting Sun09/29/2022, Until Sun11/28/2022, Normal Chronic , uncontrolled conditions. We discussed several options and ultimately decided on effexor to see if we can treat all of her conditions. I would advise stopping concerta right now because likely worsening anxiety and sleep. She is in counseling. We discussed common side effects of transition and she will contact with me any intolerable effects prior to next visit. We discussed it is not bad idea to have her counselor set her up with psychiatry just in case and can cancel future appt if needed. She agrees with plan. Follow up in about 4 weeks (around 10/27/2022) for adhd. Subjective HPI Anxiety - tried zoloft 25 to now 50 mg. She actually increased to 100 on her own for 2 days . Has only helped minimally. - but even with the medicine she can feel her anxiety through her body. - feels like dread . - chronic issue, worse over last week. - has been on med in the past but not sure what. - maybe worsened last week for traveling. - has not been able to sleep - she is in [facility] - previously diagnosed by her blanket folder. She is not sure if making things. Last treated at age 17 . Stopped because her mom did not let her. - She finished high school. But she had to restart college. She was not able to keep track of tasks or complete them the first time around. She has symptoms work, home and school. - history of self harm but not in last 2 years . Never suicidal. If she ever felt that way again she would tell her signfiicant other. MARTIN 13 PHQ- 13 Review of Systems Constitutional: Positive for fatigue. Psychiatric/Behavioral: Positive for dysphoric mood and sleep disturbance. Negative for self-injury and suicidal ideas. The patient is nervous/anxious. No Known Allergies Current Outpatient Medications Medication Sig Dispense Refill albuterol (2.5 MG/3ML) 0.083% nebulizer solution Take 3 mL (2.5 mg) by nebulization in the morning and 3 mL (2.5 mg) at noon and 3 mL (2.5 mg) in the evening. 75 mL 11 albuterol 108 (90 Base) MCG/ACT inhaler Inhale 2 puffs every 6 hours as needed for wheezing. 18 g 3 fluticasone (Flovent) 110 MCG/ACT inhaler Inhale 1 puff in the morning and 1 puff in the evening. Rinse mouth with water after use to reduce aftertaste and incidence of candidiasis. Do not swallow.. 12 g 11 Respiratory Therapy Supplies (Nebulizer) device 1 each every 6 hours as needed (shortness of breath). 1 each 0 venlafaxine XR (Effexor XR) 75 MG 24 hr capsule Take 1 capsule (75 mg) by mouth daily. Take with food. 30 capsule 1 No current facility-administered medications for this visit. Past Medical History: Diagnosis Date 2018 novel coronavirus disease (COVID-19) Anxiety Asthma Depression Headache Obesity Osteoporosis Visual impairment Social History Tobacco Use Smoking status: Never Passive exposure: Never Smokeless tobacco: Never Substance Use Topics Alcohol use: Yes Comment: socially Past Surgical History: Procedure Laterality Date JOINT REPLACEMENT TONSILLECTOMY Family History Problem Relation Name Age of Onset No Known Problems Mother No Known Problems Father Breast cancer Maternal Grandmother Objective There were no vitals taken for this visit. Physical Exam Constitutional: Appearance: Normal appearance. Neurological: Mental Status: She is alert. Data Reviewed and Summarized Labs: Imaging/Testing: Rubi Verduzco MD documented in this encounter [facility] [employer] 08-04-2022 Telephone encount er Note Spoke bro agosto. Appt made [facility] [employer] 08-04-2022 Miscellaneous Notes Formattin g of this note might be different from the original. Spoke bro agosto. Appt made Name of Caller: Shiraz Contact Reason for Appointment: Referred by Prudence Rodriguez Office Name: Plastic Surgery Medication Refills need, if any: No Medication Name: No documented in this encounter [facility] 08-04-2022 Telephone encount er Note Name of Caller: Shiraz Contact Reason for Appointment: Referred by Prudence Rodriguez Office Name: Plastic Surgery Medication Refills need, if any: No Medication Name: No [facility] 06-07-2022 Note HNO ID: [id number] Author: Jaleesa Stienberg PA-C Service: ? Author Type: Physician Cleaning Team Member Type: Progress Notes Filed: 06/07/2022 12:12 PM Note Text: The patient did not show up for this appointment. Jaleesa Steinberg PA-C [facility] 06-07-2022 History of Presen t illness Narrative The patient did not show up for this appointment. Jaleesa Steinberg PA-C documented in this encounter [facility] Generalized anxiety disorder- Primary Attention deficit hyperactivity disorder (ADHD), combined type Moderate episode of recurrent major depressive disorder (HCC) [facility] Diagnosis Generalized anxiety disorder Attention deficit hyperactivity disorder (ADHD), combined type Moderate episode of recurrent major depressive disorder (HCC) documented in this encounter [facility] Summary Purpose Family History No Family History Records FoundNo Family History Records FoundNo Family History Records FoundNo Family History Records FoundNo Family History Records FoundNo Family History Records Found Advance Directives No Advanced Directives Records FoundNo Advanced Directives Records FoundNo Advanced Directives Records FoundNo Advanced Directives Records FoundNo Advanced Directives Records FoundNo Advanced Directives Records Found Chief Complaint Cough and congestioncough / fever / chills* Patient s/Guardian s identity confirmed by valid photo ID. * BODY ACHES/SICK Additional Source Comments Source Comments (unrecognize d section and content) In the event this informatio n is protected by the Federal Confidentiality of Alcohol and Drug Abuse Patient Records regulations: The Federal rules restrict any use of the information to criminally investigate or prosecute any alcohol or drug abuse patient.[facility] Reason for Visit (unrecogniz ed section and content) Reason Onset Date Comments Schedule an appointment 08/04/2022 Reason Comments Anxiety Reason Onset Date Comments Med Refill 12/19/2022 Reason Onset Date Comments Med Refill 01/24/2023 Care Teams (unrecognized sec tion and content) Clinical Data Programmer Relationship Specialty Start Date End Date Rubi Verduzco MD [address] [place] [address] PCP - General Family Medicine 08/04/22 Clinical Data Programmer Relationship Specialty Start Date End Date Rubi Verduzco MD [address] [id number] PCP - General Family Medicine 08/04/22 Clinical Data Programmer Relationship Specialty Start Date End Date Rubi Verduzco MD [address] [address] PCP - General Family Medicine 08/04/22 Clinical Data Programmer Relationship Specialty Start Date End Date Rubi Verduzco MD [address] [place] [id number] PCP - General Family Medicine 08/04/22 INFORMATION SOURCE (unrecogn ized section and content) DATE CREATED AUTHOR AUTHOR'S ORGANIZ ATION 08/10/2022 [facility] DATE CREATED AUTHOR AUTHOR'S ORGANIZ ATION 11/14/2022 [facility] DATE CREATED AUTHOR AUTHOR'S ORGANIZ ATION 11/15/2022 [facility] DATE CREATED AUTHOR AUTHOR'S ORGANIZ ATION 02/06/2023 [employer] DATE CREATED AUTHOR AUTHOR'S ORGANIZ ATION 02/07/2023 [facility] FOR RECORDS PERTAINING TO PATIENTS WHO ARE OR HAVE BEEN ENROLLED IN A CHEMICAL DEPENDENCY/SUBSTANCEABUSE PROGRAM, SOME INFORMATION MAY BE OMITTED. This clinical summary was aggregated from multiple sources. Caution should be exercised in using it in the provision of clinical care. This summary normalizes information from multiple sources, and as a consequence, information in this document may materially change the coding, format and clinical context of patient data. In addition, data may be omitted in some cases. CLINICAL DECISIONS SHOULD BE BASED ON THE PRIMARY CLINICAL RECORDS. [employer] provides no warranty or guarantee of the accuracy or completeness of information in this document.
[2023-05-28 09:37] LABS: Pathologist Review Reviewed
== END 2023-05-24 17:27 | disposition home or self-care (01) ==
PROVIDERS: Emergency Provider Emergency Medicine; Visit Provider Emergency Medicine
DX: L50.0 Allergic urticaria (principal); B34.9 Viral infection, unspecified; E86.0 Dehydration; R00.0 Tachycardia, unspecified; Z87.891 Personal history of nicotine dependence
CPT/HCPCS: 80048; 85025; 87631; 96365; 96366; 96375; 99284; J7030; A4216; J2405; J3490

== ENCOUNTER 2023-05-31 20:42 | Emergency (ER) | payer MEDICAID, SELFPAY ==
[2023-05-31 20:43] VITALS: BP 142/91; PULSE 98; RESP 16; TEMP 36.2; O2SAT 99; BMI 23.4
--- OUTSIDE RECORDS SUMMARY | 2023-05-31 21:54 | XMS RPT_ITS | CCD ---
Author Name Unknown Address [address] [place] [address] Organization [facility] Care Team Providers Care Food Scientist Name Role Phone Ebenezer Eisenberg Primary Care Provider EBENEZER EISENBERG Attending Unavailable EBENEZER EISENBERG Primary Care Unavailable REFERRED, SELF Referring Unavailable Rubi Verduzco MD Primary Care Provider Unknown, Unknown Unavailable Unavailable Unavailable Unavailable AA NO PCP, NO PCP Primary Care Unavailable CARLITO CARTER DO Admitting Unavailabl CARLITO Edouard DO Attending Unavailabl e AA NO PCP, NO PCP Primary Care Unavailable NATALEE LOPEZ~[id number], NATALEE Fortune Admitting Unavailable NATALEE LOPEZ~[id number], NATALEE Fortune Attending Unavailable Rubi Verduzco MD Primary Care Provider PRUDENCE RODRIGUEZ Attending Unavailable RICARDO, RUBI Primary [...] Unavailable Ms. Mary Sheehan Referring U joan Sheehan, Ms. Mary Aguirre Attending U callumable UNKNOWN, [...] Body temperature 98.9 [degF] Unknown Unknown [facility] Work Phone: 02-05-2023 09:59-0400 Body weight 64.92 kg Unknown Unknown [facility] Work Phone: 02-05-2023 09:59-0400 Diastolic blood pressure 76 mm[Hg] Unknown Unknown [facility] Work Phone: 02-05-2023 09:59-0400 Heart rate 119 /min Unknown Unknown [facility] Work Phone: 02-05-2023 09:59-0400 SaO2% (BldA) [Mass fraction] 95 % Unknown Unknown [facility] Work Phone: 02-05-2023 09:59-0400 Systolic blood pressure 119 mm[Hg] Unknown Unknown [facility] Work Phone: 11-06-2022 11:07-0400 Body mass index (BMI) [Ratio] Medical Reason Not Done Unknown Unknown [facility] Work Phone: 11-06-2022 11:07-0400 Body temperature 98.3 [degF] Unknown Unknown [facility] Work Phone: 11-06-2022 11:07-0400 Body weight 67.59 kg Unknown Unknown [facility] Work Phone: 11-06-2022 11:07-0400 Diastolic blood pressure 83 mm[Hg] Unknown Unknown [facility] Work Phone: 11-06-2022 11:07-0400 Heart rate 71 /min Unknown Unknown [facility] Work Phone: 11-06-2022 11:07-0400 SaO2% (BldA) [Mass fraction] 97 % Unknown Unknown [facility] Work Phone: 11-06-2022 11:07-0400 Systolic blood pressure 123 mm[Hg] Unknown Unknown [facility] Work Phone: 10-14-2022 10:34-0400 Body temperature 98.7 [degF] Unknown Unknown [facility] Work Phone: 10-14-2022 10:34-0400 Body weight 65.32 kg Unknown Unknown [facility] Work Phone: 10-14-2022 10:34-0400 Diastolic blood pressure 86 mm[Hg] Unknown Unknown [facility] Work Phone: 10-14-2022 10:34-0400 Heart rate 90 /min Unknown Unknown [facility] Work Phone: 10-14-2022 10:34-0400 Systolic blood pressure 114 mm[Hg] Unknown Unknown [facility] Work Phone: 10-09-2022 14:29-0400 Body temperature 98.2 [degF] Unknown Unknown [facility] Work Phone: 10-09-2022 14:29-0400 Body weight 66.68 kg Unknown Unknown [facility] Work Phone: 10-09-2022 14:29-0400 Diastolic blood pressure 84 mm[Hg] Unknown Unknown [facility] Work Phone: 10-09-2022 14:29-0400 Heart rate 110 /min Unknown Unknown [facility] Work Phone: 10-09-2022 14:29-0400 SaO2% (BldA) [Mass fraction] 96 % Unknown Unknown [facility] Work Phone: 10-09-2022 14:29-0400 Systolic blood pressure 120 mm[Hg] Unknown Unknown [facility] Work Phone: Encounters Encounter Date Encounter Type Care Provider Facility Start: 02-05-2023 Chart Update Unknown Unknown [facility] Work Phone: Start: 02-05-2023 ambulatory Ms. Mary Sheehan Facility:[id number] Start: 02-05-2023 Office outpatient vi sit 25 minutes Unknown Unknown [facility] Work Phone: Start: 01-24-2023 Criselda Verduzco MD Work Phone: [facility] Family Medicine Procedures Date Procedure Procedure Detail Performing Clinician Start: 11-13-2022 Ecg routine ecg w/le ast 12 lds trcg only w/o i&r Severiano Castaneda FINISHER COLD ROLLING - MULTIFOCAL BUTTON GRINDER Work Phone: Plan of Treatment Date Care Activity Detail Author Start: 2052 Zoster Vaccines (1 of 2) Zoster Vaccines (1 of 2) [facility] Start: 08-17-2024 DTaP/Tdap/Td Vaccines (7 - Td or Tdap) DTaP/Tdap/Td Vaccines (7 - Td or Tdap) [facility] Start: 08-17-2024 Urine microalbumin profile DTAP,TDAP,TD (7 - Td or Tdap) [facility] Start: 06-07-2023 ANNUAL PCP TEAM CHRONIC DISEASE VISIT ANNUAL PCP TEAM CHRONIC DISEASE VISIT [facility] Start: 05-09-2023 Depresssion Monitoring Depresssion Monitoring [facility] Start: 04-01-2023 Depresssion Monitoring Depresssion Monitoring [facility] Start: 03-06-2023 End: 03-06-2023 Patient encounter procedure 03/06/2023 11:40 AM EDT Office Visit [facility] [address] [place] [address] [address] [place] [phone] Rubi Verduzco MD [address] [place] [address] [address] [place], [place] [id number] [facility] Start: 01-19-2023 Influenza vaccination [facility] Start: 12-05-2022 End: 12-05-2022 Patient encounter procedure [facility] Start: 11-22-2022 End: 11-22-2022 Patient encounter procedure 11/22/2022 8:30 AM EDT Office Visit [facility] Plastic & Reconstructive Surgery [address] [place] [phone] Marisol Mckinnon MD [address] [facility] [place], [place] [id number] [facility] Plastic & Reconstructive Surgery Start: 11-14-2022 End: 11-14-2022 Telemedicine consultation with patient 11/14/2022 1:40 PM EDT Telemedicine [facility] Family Medicine [address] [place] [address] Prudence Rodriguez, FINISHER COLD ROLLING - MULTIFOCAL BUTTON GRINDER [address] [place], [place] [id number] [facility] Family Medicine Start: 11-10-2022 End: 11-10-2022 Telemedicine consultation with patient 11/10/2022 Telemedicine Family Medicine Rubi Verduzco MD [address] [facility] [address] [place], [place] [address] [facility] Family Medicine Start: 10-11-2022 End: 10-11-2022 Patient encounter procedure 10/11/2022 Office Visit Plastic Surgery Marisol Mckinnon MD [address] [facility] [address] [place], [place] [address] [facility] Plastic & Reconstructive Surgery Start: 09-08-2022 End: 09-08-2022 Patient encounter procedure 09/08/2022 Office Visit Plastic Surgery Juliane Gonzalez MD [address] [facility] [address] [place], [place] [id number] [facility] Plastic & Reconstructive Surgery Start: 05-21-2022 DEPRESSION ASSESSMENT DEPRESSION ASSESSMENT [facility] Start: 01-19-2022 Influenza vaccination INFLUENZA (#1) [facility] Start: 07-23-2021 CHLAMYDIA SCREENING (18-24) CHLAMYDIA SCREENING (18-24) [facility] Start: 07-23-2021 GC (GONORRHEA) SCREENING (18-24) GC (GONORRHEA) SCREENING (18-24) [facility] Start: 2021 DTaP/Tdap/Td Vaccines (1 - Tdap) DTaP/Tdap/Td Vaccines (1 - Tdap) [facility] Start: 09-15-2020 COVID-19 VACCINE (2 - Pfizer series) COVID-19 VACCINE (2 - Pfizer series) [facility] Start: 2020 HEPATITIS C SCREENING HEPATITIS C SCREENING [facility] Start: 2020 Hepatitis C screening Hepatitis C Screening [facility] Start: 2020 HIV SCREENING HIV SCREENING [facility] Start: 2020 SPIROMETRY SPIROMETRY [facility] Start: 2016 PEDS TO ADULT TRANSITION ANNUAL ASSESSMENT PEDS TO ADULT TRANSITION ANNUAL ASSESSMENT [facility] Start: 2014 PEDS TO ADULT TRANSITION INITIAL DISCUSSION PEDS TO ADULT TRANSITION INITIAL DISCUSSION [facility] Start: 2013 HPV Vaccines (1 - 2-dose series) HPV Vaccines (1 - 2-dose series) [facility] Start: 2008 PNEUMOCOCCAL (1 - PCV) PNEUMOCOCCAL (1 - PCV) [facility] Start: 2006 ASTHMA CONTROL TEST ASTHMA CONTROL TEST [facility] Start: 2004 ASTHMA ACTION PLAN ASTHMA ACTION PLAN [facility] Start: 2003 MMR Vaccines (1 of 1 - Standard series) MMR Vaccines (1 of 1 - Standard series) [facility] Start: 2003 Varicella vaccination Varicella Vaccines (1 of 2 - 2-dose childhood series) [facility] Start: 2002 COVID-19 Vaccine (#1) COVID-19 Vaccine (#1) [facility] Start: 2002 Hepatitis B Vaccines (1 of 3 - 3-dose series) Hepatitis B Vaccines (1 of 3 - 3-dose series) [facility] Start: 2002 HIV screening HIV Screening [facility] Start: 2002 Screening for Chlamydia trachomatis Chlamydia and Gonorrhea Screening [facility] Immunizations Immunization Date Immunization Notes Care Provider Fa cili 04-13-2020 meningococcal B vacc ine, recombinant, OMV, adjuvanted Jaleesa Steinberg PA-C Work Phone: [facility] Work Phone: 02-20-2020 influenza, injectabl e, quadrivalent, preservative free Jaleesa Steinberg PA-C Work Phone: [facility] Work Phone: 02-20-2020 meningococcal B vacc ine, recombinant, OMV, adjuvanted Jaleesa Steinberg PA-C Work Phone: [facility] Work Phone: 02-20-2020 influenza virus vacc ine, unspecified formulation Juliane Gonzalez MD Work Phone: [facility] 02-06-2019 meningococcal polysaccharide (groups A, C, Y and W-135) diphtheria toxoid conjugate vaccine (MCV4P) Jaleesa Steinberg PA-C Work Phone: [facility] Work Phone: 02-25-2015 influenza, seasonal, injectable Jaleesa Steinberg PA-C Work Phone: [facility] Work Phone: 12-17-2014 human papilloma viru s vaccine, quadrivalent Jaleesa Steinberg PA-C Work Phone: [facility] Work Phone: 08-17-2014 human papilloma viru s vaccine, quadrivalent Jaleesa Steinberg PA-C Work Phone: [facility] Work Phone: 08-17-2014 meningococcal polysaccharide (groups A, C, Y and W-135) diphtheria toxoid conjugate vaccine (MCV4P) Jaleesa Steinberg PA-C Work Phone: [facility] Work Phone: 08-17-2014 tetanus toxoid, redu cristiana diphtheria toxoid, and acellular pertussis vaccine, adsorbed Jaleesa Steinberg PA-C Work Phone: [facility] Work Phone: 06-18-2014 human papilloma viru s vaccine, quadrivalent Jaleesa Steinberg PA-C Work Phone: [facility] Work Phone: 02-22-2010 influenza, seasonal, injectable, preservative free Jaleesa Maryan BUSTAMANTE Work Phone: [facility] Work Phone: 04-14-2009 influenza, seasonal, injectable, preservative free Jaleesa Maryan BUSTAMANTE Work Phone: [facility] Work Phone: 04-14-2009 novel influenza-H1N1 -09, preservative-free, injectable Jaleesa Maryan BUSTAMANTE Work Phone: [facility] Work Phone: 08-20-2008 hepatitis A vaccine, pediatric/adolescent dosage, 2 dose schedule Jaleesa Steinberg PA-C Work Phone: [facility] Work Phone: 03-16-2008 influenza virus vacc ine, whole virus Jaleesajessica Steinberg PA-C Work Phone: [facility] Work Phone: 11-07-2007 diphtheria, tetanus toxoids and acellular pertussis vaccine, unspecified formulation Jaleesa Steinberg PA-C Work Phone: [facility] Work Phone: 11-07-2007 measles, mumps and rubella virus vaccine Jaleesajessica Steinberg PA-C Work Phone: [facility] Work Phone: 11-07-2007 poliovirus vaccine, inactivated Jaleesajessica Steinberg PA-C Work Phone: [facility] Work Phone: 11-07-2007 varicella virus vaccine Flora hugh Steinberg PA-C Work Phone: [facility] Work Phone: 01-16-2007 hepatitis A vaccine, pediatric/adolescent dosage, 2 dose schedule Jaleesa Steinberg PA-C Work Phone: [facility] Work Phone: 12-04-2006 haemophilus influenz ae type b vaccine, PRP-T conjugate Jaleesa Steinberg PA-C Work Phone: [facility] Work Phone: 11-01-2004 diphtheria, tetanus toxoids and acellular pertussis vaccine, unspecified formulation Jaleesa Steinberg PA-C Work Phone: [facility] Work Phone: 10-14-2003 hepatitis B vaccine, pediatric or pediatric/adolescent dosage Jaleesa Steinberg PA-C Work Phone: [facility] Work Phone: 09-16-2003 hepatitis B vaccine, pediatric or pediatric/adolescent dosage Jaleesa Steinberg PA-C Work Phone: [facility] Work Phone: 09-16-2003 measles, mumps and rubella virus vaccine Jaleesa Steinberg PA-C Work Phone: [facility] Work Phone: 09-16-2003 varicella virus vaccine Flora hugh Steinberg PA-C Work Phone: [facility] Work Phone: 04-09-2003 hepatitis B vaccine, pediatric or pediatric/adolescent dosage Jaleesa Steinberg PA-C Work Phone: [facility] Work Phone: 01-02-2003 diphtheria, tetanus toxoids and acellular pertussis vaccine, unspecified formulation Jaleesa Steinberg PA-C Work Phone: [facility] Work Phone: 01-02-2003 haemophilus influenz ae type b vaccine, PRP-T conjugate Jaleesa Steinberg PA-C Work Phone: [facility] Work Phone: 01-02-2003 pneumococcal conjuga te vaccine, 7 valent Jaleesa Steinberg PA-C Work Phone: [facility] Work Phone: 01-02-2003 poliovirus vaccine, inactivated Jaleesa Steinberg PA-C Work Phone: [facility] Work Phone: 2002 diphtheria, tetanus toxoids and acellular pertussis vaccine, unspecified formulation Jaleesa Steinberg TYSON-C Work Phone: [facility] Work Phone: 2002 haemophilus influenz ae type b vaccine, PRP-T conjugate Jaleesa Steinberg TYSON-C Work Phone: [facility] Work Phone: 2002 pneumococcal conjuga te vaccine, 7 valent Jaleesa Maryan TYOSN-C Work Phone: [facility] Work Phone: 2002 poliovirus vaccine, inactivated Jaleesa MEHTA-C Work Phone: [facility] Work Phone: 2002 diphtheria, tetanus toxoids and acellular pertussis vaccine, unspecified formulation Jaleesa MEHTA-Mulu Work Phone: [facility] Work Phone: 2002 haemophilus influenz ae type b vaccine, PRP-T conjugate Jaleesajessica Steinberg TYSON-C Work Phone: [facility] Work Phone: 2002 pneumococcal conjuga te vaccine, 7 valent Jaleesa MEHTA-C Work Phone: [facility] Work Phone: 2002 poliovirus vaccine, inactivated Jaleesa Maryan TYSON-C Work Phone: [facility] Work Phone: 2002 hepatitis B vaccine, pediatric or pediatric/adolescent dosage Jaleesa MEHTA-C Work Phone: [facility] Work Phone: 2002 hepatitis B vaccine, pediatric or pediatric/adolescent dosage Jaleesa MEHTA-C Work Phone: [facility] Work Phone: Payers Date Payer Category Payer Medicaid [id number] 2002 Unknown [id number] 2002 Unknown [id number] 2002 Unknown [id number] 2002 Unknown [id number] 2002 Unknown [id number] 2002 Unknown [id number] 2002 Unknown [id number] 1959 Unknown [id number] Unknown [facility] Social History Date Type Detail Facility Start: 05-31-2017 End: 08-04-2022 Tobacco smoking status MTIS Never smoked tobacco [facility] Start: 05-31-2017 End: 08-04-2022 Tobacco use and exposure Smokeless tobacco non-user [facility] Start: 04-26-2021 Alcohol intake Lifetime non-d essie (finding) [facility] Start: 07-17-2019 History SDOH Alcohol Frequency 1 [facility] Start: 09-28-2020 Education 11 [facility] Start: 2002 Sex Assigned At Not on file [facility] Start: 08-04-2022 Alcohol intake Ex-drinker (finding) [facility] Start: 2002 Sex Assigned At Female S [facility] Start: 08-26-2022 End: 11-13-2022 Exposure to SARS-CoV-2 (event) Not sure [facility] Start: 09-29-2022 End: 11-07-2022 Alcohol intake Current drinker of alcohol (finding) [facility] Start: 09-05-2022 [facility] Start: 11-07-2022 History of Social function [facility] Start: 11-07-2022 Tobacco use panel [facility] Adolescent depressio n screening assessment 15 [facility] Start: 08-01-2022 Gender identity Identifies as female gender (finding) [facility] Start: 08-01-2022 Sexual orientation Bisexual (finding ) [facility] NEGATED: Highlighted rowStart: NINF History of tobacco use Passive smoker [facility] Clinical Notes 06-07-2022 to 02-02-2023 Rubi Verduzco [...] clarification. Severiano Castaneda APRN - ANDRZEJ 11/13/22 [facility] 11-06-2022 History of Presen t illness [...] from the original note were not included. [place] [address] [facility] [address] Dept: [phone] Dept Visit type: Established patient Reason for [...] stated that they are currently in the [facility]. If the patient is a minor, permission [...] is in counseling 2 times a week. [facility]. - previously diagnosed by her copra sampler. She is not sure if making things. [...] Rubi Verduzco MD documented in this encounter [facility] 08-04-2022 Telephone encount er Note Spoke bro agosto. Appt made [facility] 08-04-2022 Miscellaneous Notes Formattin g of this note might be different from the original. Spoke bro agosto. Appt made Name of Caller: Shiraz Contact Reason for Appointment: Referred by Prudence Rodriguez Office Name: Plastic Surgery Medication Refills need, if any: No Medication Name: No documented in this encounter [facility] 08-04-2022 Telephone encount er Note Name of Caller: Shiraz Contact Reason for Appointment: Referred by Prudence Rodriguez Office Name: Plastic Surgery Medication Refills need, if any: No Medication Name: No [facility] 06-07-2022 Note HNO ID: [id number] Author: Jaleesa Steinberg PA-C Service: ? Author Type: Physician Cst Type: Progress Notes Filed: 06/07/2022 12:12 PM Note Text: The patient did not show up for this appointment. Jaleesa Steinberg PA-C [facility] 06-07-2022 History of Presen t illness Narrative The patient did not show up for this appointment. Jaleesa Steinberg PA-C documented in this encounter [facility] Diagnosis Generalized anxiety disorder- Primary Attention deficit hyperactivity disorder (ADHD), combined type Moderate episode of recurrent major depressive disorder (HCC) [facility] Diagnosis Generalized anxiety disorder Attention deficit hyperactivity disorder (ADHD), combined type Moderate episode of recurrent major depressive disorder (HCC) documented in this encounter [facility] Summary Purpose Family History No Family History [...] or prosecute any alcohol or drug abuse patient.[facility] Reason for Visit (unrecogniz ed section and content) Reason Onset Date Comments Schedule an appointment 08/04/2022 Reason Comments Anxiety Reason Onset Date Comments Med Refill 12/19/2022 Reason Onset Date Comments Med Refill 01/24/2023 Care Teams (unrecognized sec tion and content) Food Scientist Relationship Specialty Start Date End Date Rubi Verduzco MD [address] [place] [address] PCP - General Family Medicine 08/04/22 Food Scientist Relationship Specialty Start Date End Date Rubi Verduzco MD [address] [address] PCP - General Family Medicine 08/04/22 Food Scientist Relationship Specialty Start Date End Date Rubi Verduzco MD [address] [address] PCP - General Family Medicine 08/04/22 Food Scientist Relationship Specialty Start Date End Date Rubi Verduzco MD [address] [place] [id number] PCP - General Family Medicine 08/04/22 INFORMATION SOURCE (unrecogn ized section and content) DATE CREATED AUTHOR AUTHOR'S ORGANIZ ATION 08/10/2022 [facility] DATE CREATED AUTHOR AUTHOR'S ORGANIZ ATION 11/14/2022 [facility] DATE CREATED AUTHOR AUTHOR'S ORGANIZ ATION 11/15/2022 [facility] DATE CREATED AUTHOR AUTHOR'S ORGANIZ ATION 02/06/2023 [employer] DATE CREATED AUTHOR AUTHOR'S ORGANIZ ATION 02/07/2023 [facility] FOR RECORDS PERTAINING TO PATIENTS WHO ARE [...] BE BASED ON THE PRIMARY CLINICAL RECORDS. [employer] provides no warranty or guarantee of the accuracy or completeness of information in this document.
--- NOTE | 2023-05-31 22:27 | EX.ED.DYSGE1 ---
HPI History of Present Illness Chief Complaint: Ear Problem [facility] Medical History Asthma Medical History no medical history Home Medications albuterol sulfate 90 mcg/actuation aerosol inhaler 1 - 2 puff inhalation Q6H PRN PRN Asthma 06/16/20 [History Last Taken Unknown] diphenhydramine HCl 25 mg capsule (Benadryl) 25 mg PO TID #10 caps 05/24/23 [Rx Last Taken Unknown] famotidine 20 mg tablet (Pepcid) 20 mg PO BID #7 tabs 05/24/23 [Rx Last Taken Unknown] prednisone 20 mg tablet 60 mg (3 x 20 mg) PO DAILY #12 TABLETS 05/24/23 [Rx Last Taken Unknown] Allergy/AdvReac Type Severity Reaction Status Date / Time No Known Allergies Allergy Verified 05/31/23 21:41 Surgical History Hx of removal of growth plate Surgical History no surgical history Social History household members: family Smoking Status: Unknown if ever smoked alcohol intake: never what type of physical activity do you participate in: other frequency: daily duration: 30-45 minutes/day EXAM Physical Exam Const Vital Signs: 05/31/23 20:43 05/31/23 20:43 Temperature 97.2 F L 97.2 F L Temperature Source Temporal Temporal Pulse Rate 98 Respiratory Rate 16 Blood Pressure 142/91 H Blood Pressure Mean 108 Pulse Ox 99 Oxygen Delivery Method Room Air MDM MDM MDM Narrative Medical decision making narrative: I did not participate in this patient's care Discharge Plan Triage Chief Complaint: Ear Problem ED Provider: Lloyd Garcai Dx/Rx/DC Orders Prescriptions: No Action albuterol sulfate 1 PUFF inhaler 1 - 2 puff INHALATION Q6H PRN PRN (Reason: Asthma) prednisone 20 mg tablet 60 mg PO DAILY Qty: 12 0RF famotidine [Pepcid] 20 mg tablet 20 mg PO BID Qty: 7 0RF diphenhydramine HCl [Benadryl] 25 mg capsule 25 mg PO TID Qty: 10 0RF Primary Care Provider: Care Physician,No Primary Referrals: Care Physician,No Primary [Primary Care Provider] - Disposition Disposition: LEFT WITHOUT BEING SEEN Discharge Date/Time: 05/31/23 22:28
--- OUTSIDE RECORDS SUMMARY | 2023-05-31 22:31 | XMS RPT_ITS | CCD ---
Author Name Unknown Address [address] [place] [address] Organization [facility] Care Team Providers Care Project Management Manager Name Role Phone Ebenezer Eisenberg Primary Care Provider EBENEZER EISENBERG Attending Unavailable EBENEZER EISENBERG Primary Care Unavailable REFERRED, SELF Referring Unavailable Rubi Verduzco MD Primary Care Provider [phone] Unknown, Unknown Unavailable Unavailable Unavailable Unavailable AA NO PCP, NO PCP Primary Care Unavailable CARLITO CARTER DO Admitting Unavailabl CARLITO Edouard DO Attending Unavailabl e AA NO PCP, NO PCP Primary Care Unavailable NATALEE LOPEZ~[id number], NATALEE Fortune Admitting Unavailable NATALEE LOPEZ~[phone], NATALEE Fortune Attending Unavailable Rubi Verduzco MD Primary Care Provider [phone] PRUDENCE RODRIGUEZ Attending Unavailable RICARDO, RUBI Primary [...] Body temperature 98.9 [degF] Unknown Unknown [facility] Work Phone: 02-05-2023 09:59-0400 Body weight 64.92 kg Unknown Unknown [facility] Work Phone: 02-05-2023 09:59-0400 Diastolic blood pressure 76 mm[Hg] Unknown Unknown [facility] Work Phone: 02-05-2023 09:59-0400 Heart rate 119 /min Unknown Unknown [facility] Work Phone: 02-05-2023 09:59-0400 SaO2% (BldA) [Mass fraction] 95 % Unknown Unknown [facility] Work Phone: 02-05-2023 09:59-0400 Systolic blood pressure 119 mm[Hg] Unknown Unknown [facility] Work Phone: 11-06-2022 11:07-0400 Body mass index (BMI) [Ratio] Medical Reason Not Done Unknown Unknown [facility] Work Phone: 11-06-2022 11:07-0400 Body temperature 98.3 [degF] Unknown Unknown [facility] Work Phone: 11-06-2022 11:07-0400 Body weight 67.59 kg Unknown Unknown [facility] Work Phone: 11-06-2022 11:07-0400 Diastolic blood pressure 83 mm[Hg] Unknown Unknown [facility] Work Phone: 11-06-2022 11:07-0400 Heart rate 71 /min Unknown Unknown [facility] Work Phone: 11-06-2022 11:07-0400 SaO2% (BldA) [Mass fraction] 97 % Unknown Unknown [facility] Work Phone: 11-06-2022 11:07-0400 Systolic blood pressure 123 mm[Hg] Unknown Unknown [facility] Work Phone: 10-14-2022 10:34-0400 Body temperature 98.7 [degF] Unknown Unknown [facility] Work Phone: 10-14-2022 10:34-0400 Body weight 65.32 kg Unknown Unknown [facility] Work Phone: 10-14-2022 10:34-0400 Diastolic blood pressure 86 mm[Hg] Unknown Unknown [facility] Work Phone: 10-14-2022 10:34-0400 Heart rate 90 /min Unknown Unknown [facility] Work Phone: 10-14-2022 10:34-0400 Systolic blood pressure 114 mm[Hg] Unknown Unknown [facility] Work Phone: 10-09-2022 14:29-0400 Body temperature 98.2 [degF] Unknown Unknown [facility] Work Phone: 10-09-2022 14:29-0400 Body weight 66.68 kg Unknown Unknown [facility] Work Phone: 10-09-2022 14:29-0400 Diastolic blood pressure 84 mm[Hg] Unknown Unknown [facility] Work Phone: 10-09-2022 14:29-0400 Heart rate 110 /min Unknown Unknown [facility] Work Phone: 10-09-2022 14:29-0400 SaO2% (BldA) [Mass fraction] 96 % Unknown Unknown [facility] Work Phone: 10-09-2022 14:29-0400 Systolic blood pressure 120 mm[Hg] Unknown Unknown [facility] Work Phone: Encounters Encounter Date Encounter Type Care Provider Facility Start: 02-05-2023 Chart Update Unknown Unknown [facility] Work Phone: Start: 02-05-2023 ambulatory Ms. Mary Sheehan Facility:[id number] Start: 02-05-2023 Office outpatient vi sit 25 minutes Unknown Unknown [facility] Work Phone: Start: 01-24-2023 Criselda Verduzco MD Work Phone: [facility] Family Medicine Procedures Date Procedure Procedure Detail Performing Clinician Start: 11-13-2022 Ecg routine ecg w/le ast 12 lds trcg only w/o i&r Severiano Castaneda OPERATOR [employer] LOCATING RADAR - FLOOR FINISHER Work Phone: Plan of Treatment Date Care Activity Detail Author Start: 2052 Zoster Vaccines (1 of 2) Zoster Vaccines (1 of 2) [facility] Start: 08-17-2024 DTaP/Tdap/Td Vaccines (7 - Td or Tdap) DTaP/Tdap/Td Vaccines (7 - Td or Tdap) [facility] Start: 08-17-2024 Urine microalbumin profile DTAP,TDAP,TD (7 - Td or Tdap) [facility] Start: 06-07-2023 ANNUAL PCP TEAM CHRONIC DISEASE VISIT ANNUAL PCP TEAM CHRONIC DISEASE VISIT [facility] Start: 05-09-2023 Depresssion Monitoring Depresssion Monitoring [facility] Start: 04-01-2023 Depresssion Monitoring Depresssion Monitoring [facility] Start: 03-06-2023 End: 03-06-2023 Patient encounter procedure 03/06/2023 11:40 AM EDT Office Visit [facility] Medicine [address] [place] [address] [address] [place] [id number] Rubi Verduzco MD [address] [place] [address] [address] [place], [place] [address] [facility] Start: 01-19-2023 Influenza vaccination [facility] Start: 12-05-2022 End: 12-05-2022 Patient encounter procedure [facility] Start: 11-22-2022 End: 11-22-2022 Patient encounter procedure 11/22/2022 8:30 AM EDT Office Visit [facility] Plastic & Reconstructive Surgery [address] [place] [id number] Marisol Mckinnon MD [address] [facility] [address] [place] [id number] [facility] Plastic & Reconstructive Surgery Start: 11-14-2022 End: 11-14-2022 Telemedicine consultation with patient 11/14/2022 1:40 PM EDT Telemedicine [facility] Family Medicine [address] [place] [address] Prudence Rodriguez, OPERATOR [employer] LOCATING RADAR - FLOOR FINISHER [address] [facility] [address] [place], [place] [id number] [facility] Start: 11-10-2022 End: 11-10-2022 Telemedicine consultation with patient 11/10/2022 Telemedicine Family Medicine Rubi Verduzco MD [address] [facility] [address] [place], [place] [address] [facility] Start: 10-11-2022 End: 10-11-2022 Patient encounter procedure 10/11/2022 Office Visit Plastic Surgery Marisol Mckinnon MD [address] [facility] [address] [place], [place] [address] [facility] Plastic & Reconstructive Surgery Start: 09-08-2022 End: 09-08-2022 Patient encounter procedure 09/08/2022 Office Visit Plastic Surgery Juliane Gonzalez MD [address] [facility] [address] [place], [place] [id number] [facility]astic & [facility]ive Surgery Start: 05-21-2022 DEPRESSION ASSESSMENT DEPRESSION ASSESSMENT [facility] Start: 01-19-2022 Influenza vaccination INFLUENZA (#1) [facility] Start: 07-23-2021 CHLAMYDIA SCREENING (18-24) CHLAMYDIA SCREENING (18-24) [facility] Start: 07-23-2021 GC (GONORRHEA) SCREENING (18-24) GC (GONORRHEA) SCREENING (18-24) [facility] Start: 2021 DTaP/Tdap/Td Vaccines (1 - Tdap) DTaP/Tdap/Td Vaccines (1 - Tdap) [facility] Start: 09-15-2020 COVID-19 VACCINE (2 - Pfizer series) COVID-19 VACCINE (2 - Pfizer series) [facility] Start: 2020 HEPATITIS C SCREENING HEPATITIS C SCREENING [facility] Start: 2020 Hepatitis C screening Hepatitis C Screening [facility] Start: 2020 HIV SCREENING HIV SCREENING [facility] Start: 2020 SPIROMETRY SPIROMETRY [facility] Start: 2016 PEDS TO ADULT TRANSITION ANNUAL ASSESSMENT PEDS TO ADULT TRANSITION ANNUAL ASSESSMENT [facility] Start: 2014 PEDS TO ADULT TRANSITION INITIAL DISCUSSION PEDS TO ADULT TRANSITION INITIAL DISCUSSION [facility] Start: 2013 HPV Vaccines (1 - 2-dose series) HPV Vaccines (1 - 2-dose series) [facility] Start: 2008 PNEUMOCOCCAL (1 - PCV) PNEUMOCOCCAL (1 - PCV) [facility] Start: 2006 ASTHMA CONTROL TEST ASTHMA CONTROL TEST [facility] Start: 2004 ASTHMA ACTION PLAN ASTHMA ACTION PLAN [facility] Start: 2003 MMR Vaccines (1 of 1 - Standard series) MMR Vaccines (1 of 1 - Standard series) [facility] Start: 2003 Varicella vaccination Varicella Vaccines (1 of 2 - 2-dose childhood series) [facility] Start: 2002 COVID-19 Vaccine (#1) COVID-19 Vaccine (#1) [facility] Start: 2002 Hepatitis B Vaccines (1 of 3 - 3-dose series) Hepatitis B Vaccines (1 of 3 - 3-dose series) [facility] Start: 2002 HIV screening HIV Screening [facility] Start: 2002 Screening for Chlamydia trachomatis Chlamydia and Gonorrhea Screening [facility] Immunizations Immunization Date Immunization Notes Care Provider Fa cili 04-13-2020 meningococcal B vacc ine, recombinant, OMV, adjuvanted Jaleesa Steinberg PA-C Work Phone: [facility] Work Phone: 02-20-2020 influenza, injectabl e, quadrivalent, preservative free Jaleesa Steinberg PA-C Work Phone: [facility] Work Phone: 02-20-2020 meningococcal B vacc ine, recombinant, OMV, adjuvanted Jaleesa Steinberg PA-C Work Phone: [facility] Work Phone: 02-20-2020 influenza virus vacc ine, unspecified formulation Juliane Gonzalez MD Work Phone: [facility] 02-06-2019 meningococcal polysaccharide (groups A, C, Y and W-135) diphtheria toxoid conjugate vaccine (MCV4P) Jaleesa Steinberg PA-C Work Phone: [facility] Work Phone: 02-25-2015 influenza, seasonal, injectable Jaleesa Steinberg PA-C Work Phone: [facility] Work Phone: 12-17-2014 human papilloma viru s vaccine, quadrivalent Jaleesa Steinberg PA-C Work Phone: [facility] Work Phone: 08-17-2014 human papilloma viru s vaccine, quadrivalent Jaleesa Steinberg PA-C Work Phone: [facility] Work Phone: 08-17-2014 meningococcal polysaccharide (groups A, C, Y and W-135) diphtheria toxoid conjugate vaccine (MCV4P) Jaleesa Steinberg PA-C Work Phone: [facility] Work Phone: 08-17-2014 tetanus toxoid, redu cristiana diphtheria toxoid, and acellular pertussis vaccine, adsorbed Jaleesa Steinberg PA-C Work Phone: [facility] Work Phone: 06-18-2014 human papilloma viru s vaccine, quadrivalent Jaleesa Steinberg PA-C Work Phone: [facility] Work Phone: 02-22-2010 influenza, seasonal, injectable, preservative free Jaleesa Maryan BUSTAMANTE Work Phone: [facility] Work Phone: 04-14-2009 influenza, seasonal, injectable, preservative free Jaleesa Maryan BUSTAMANTE Work Phone: [facility] Work Phone: 04-14-2009 novel influenza-H1N1 -09, preservative-free, injectable Jaleesa Maryan BUSTAMANTE Work Phone: [facility] Work Phone: 08-20-2008 hepatitis A vaccine, pediatric/adolescent dosage, 2 dose schedule Jaleesa Steinberg PA-C Work Phone: [facility] Work Phone: 03-16-2008 influenza virus vacc ine, whole virus Jaleesajessica Steinberg PA-C Work Phone: [facility] Work Phone: 11-07-2007 diphtheria, tetanus toxoids and acellular pertussis vaccine, unspecified formulation Jaleesa Steinberg PA-C Work Phone: [facility] Work Phone: 11-07-2007 measles, mumps and rubella virus vaccine Jaleesajessica Steinberg PA-C Work Phone: [facility] Work Phone: 11-07-2007 poliovirus vaccine, inactivated Jaleseajessica Steinberg PA-C Work Phone: [facility] Work Phone: 11-07-2007 varicella virus vaccine Flora hugh Steinberg PA-C Work Phone: [facility] Work Phone: 01-16-2007 hepatitis A vaccine, pediatric/adolescent dosage, 2 dose schedule Jaleesa Steinberg PA-C Work Phone: [facility] Work Phone: 12-04-2006 haemophilus influenz ae type b vaccine, PRP-T conjugate Jaleesa Steinberg PA-C Work Phone: [facility] Work Phone: 11-01-2004 diphtheria, tetanus toxoids and acellular pertussis vaccine, unspecified formulation Jaleesa Steinberg PA-C Work Phone: [facility] Work Phone: 10-14-2003 hepatitis B vaccine, pediatric or pediatric/adolescent dosage Jaleesa Steinberg PA-C Work Phone: [facility] Work Phone: 09-16-2003 hepatitis B vaccine, pediatric or pediatric/adolescent dosage Jaleesa Steinberg PA-C Work Phone: [facility] Work Phone: 09-16-2003 measles, mumps and rubella virus vaccine Jaleesa Steinberg PA-C Work Phone: [facility] Work Phone: 09-16-2003 varicella virus vaccine Flora hugh Steinberg PA-C Work Phone: [facility] Work Phone: 04-09-2003 hepatitis B vaccine, pediatric or pediatric/adolescent dosage Jaleesa Steinberg PA-C Work Phone: [facility] Work Phone: 01-02-2003 diphtheria, tetanus toxoids and acellular pertussis vaccine, unspecified formulation Jaleesa Steinberg PA-C Work Phone: [facility] Work Phone: 01-02-2003 haemophilus influenz ae type b vaccine, PRP-T conjugate Jaleesa Steinberg PA-C Work Phone: [facility] Work Phone: 01-02-2003 pneumococcal conjuga te vaccine, 7 valent Jaleesa Steinberg PA-C Work Phone: [facility] Work Phone: 01-02-2003 poliovirus vaccine, inactivated Jaleesa Steinberg PA-C Work Phone: [facility] Work Phone: 2002 diphtheria, tetanus toxoids and acellular pertussis vaccine, unspecified formulation Jaleesa Steinberg TYSON-C Work Phone: [facility] Work Phone: 2002 haemophilus influenz ae type b vaccine, PRP-T conjugate Jaleesa Steinberg TYSON-C Work Phone: [facility] Work Phone: 2002 pneumococcal conjuga te vaccine, 7 valent Jaleesa Maryan TYSON-C Work Phone: [facility] Work Phone: 2002 poliovirus vaccine, inactivated Jaleesa MEHTA-C Work Phone: [facility] Work Phone: 2002 diphtheria, tetanus toxoids and acellular pertussis vaccine, unspecified formulation Jaleesa MEHTA-Mulu Work Phone: [facility] Work Phone: 2002 haemophilus influenz ae type b vaccine, PRP-T conjugate Jaleesajessica Steinberg TYSON-C Work Phone: [facility] Work Phone: 2002 pneumococcal conjuga te vaccine, 7 valent Jaleesa MEHTA-C Work Phone: [facility] Work Phone: 2002 poliovirus vaccine, inactivated Jaleesa Maryan TYSON-C Work Phone: [facility] Work Phone: 2002 hepatitis B vaccine, pediatric or pediatric/adolescent dosage Jaleesa MEHTA-C Work Phone: [facility] Work Phone: 2002 hepatitis B vaccine, pediatric or pediatric/adolescent dosage Jaleesa MEHTA-C Work Phone: [facility] Work Phone: Payers Date Payer Category Payer Medicaid [id number] 2002 Unknown [id number] 2002 Unknown [id number] 2002 Unknown [id number] 2002 Unknown [id number] 2002 Unknown [id number] 2002 Unknown [id number] 2002 Unknown [id number] 1959 Unknown [id number] Unknown MYRNA [facility] Social History Date Type Detail Facility Start: 05-31-2017 End: 08-04-2022 Tobacco smoking status AKIS Never smoked tobacco [facility] Start: 05-31-2017 End: 08-04-2022 Tobacco use and exposure Smokeless tobacco non-user [facility] Start: 04-26-2021 Alcohol intake Lifetime non-d essie (finding) [facility] Start: 07-17-2019 History SDOH Alcohol Frequency 1 [facility] Start: 09-28-2020 Education 11 [facility] Start: 2002 Sex Assigned At Not on file [facility] Start: 08-04-2022 Alcohol intake Ex-drinker (finding) [facility] Start: 2002 Sex Assigned At Female S [facility] Start: 08-26-2022 End: 11-13-2022 Exposure to SARS-CoV-2 (event) Not sure [facility] Start: 09-29-2022 End: 11-07-2022 Alcohol intake Current drinker of alcohol (finding) [facility] Start: 09-05-2022 [facility] Start: 11-07-2022 History of Social function [facility] Start: 11-07-2022 Tobacco use panel [facility] Adolescent depressio n screening assessment 15 [facility] Start: 08-01-2022 Gender identity Identifies as female gender (finding) [facility] Start: 08-01-2022 Sexual orientation Bisexual (finding ) [facility] NEGATED: Highlighted rowStart: NINF History of tobacco use Passive smoker [facility] Clinical Notes 06-07-2022 to 02-02-2023 Rubi Verduzco [...] clarification. Severiano Castaneda APRN - ANDRZEJ 11/13/22 [facility] 11-06-2022 History of Presen t illness [...] from the original note were not included. [place] [address] [facility] [address] Dept: [phone] Dept Visit type: Established patient Reason for [...] stated that they are [facility] in [facility]. If the patient is a minor, permission [...] is [facility] - previously diagnosed by her ink printer. She is not sure if making things. [...] Rubi Verduzco MD documented in this encounter [facility] 08-04-2022 Telephone encount er Note Spoke bro agosto. Appt made [facility] 08-04-2022 Miscellaneous Notes Formattin g of this note might be different from the original. Spoke bro agosto. Appt made Name of Caller: Shiraz Contact Reason for Appointment: Referred by Prudence Rodriguez Office Name: Plastic Surgery Medication Refills need, if any: No Medication Name: No documented in this encounter [facility] 08-04-2022 Telephone encount er Note Name of Caller: Shiraz Contact Reason for Appointment: Referred by Prudence Rodriguez Office Name: Plastic Surgery Medication Refills need, if any: No Medication Name: No [facility] 06-07-2022 Note HNO ID: [id number] Author: Jaleesa Steinberg PA-C Service: ? Author Type: Physician Imaging Technician Type: Progress Notes Filed: 06/07/2022 12:12 PM Note Text: The patient did not show up for this appointment. Jaleesa Steinberg PA-C [facility] 06-07-2022 History of Presen t illness Narrative The patient did not show up for this appointment. Jaleesa Steinberg PA-C documented in this encounter [facility] Generalized anxiety disorder- Primary Attention deficit hyperactivity disorder (ADHD), combined type Moderate episode of recurrent major depressive disorder (HCC) documented [facility] this encounter [facility] Diagnosis Generalized anxiety disorder Attention deficit hyperactivity disorder (ADHD), combined type Moderate episode of recurrent major depressive disorder (HCC) documented in this encounter [facility] Summary Purpose Family History No Family History [...] or prosecute any alcohol or drug abuse patient.[facility] Reason for Visit (unrecogniz ed section and content) Reason Onset Date Comments Schedule an appointment 08/04/2022 Reason Comments Anxiety Reason Onset Date Comments Med Refill 12/19/2022 Reason Onset Date Comments Med Refill 01/24/2023 Care Teams (unrecognized sec tion and content) Project Management Manager Relationship Specialty Start Date End Date Rubi Verduzco MD [address] [place] [address] PCP - General Family Medicine 08/04/22 Project Management Manager Relationship Specialty Start Date End Date Rubi Verduzco MD [address] [address] PCP - General Family Medicine 08/04/22 Project Management Manager Relationship Specialty Start Date End Date Rubi Verduzco MD [address] [address] PCP - General Family Medicine 08/04/22 Project Management Manager Relationship Specialty Start Date End Date Rubi Verduzco MD [address] [place] [address] PCP - General Family Medicine 08/04/22 INFORMATION SOURCE (unrecogn ized section and content) DATE CREATED AUTHOR AUTHOR'S ORGANIZ ATION 08/10/2022 [facility] DATE CREATED AUTHOR AUTHOR'S ORGANIZ ATION 11/14/2022 [facility] DATE CREATED AUTHOR AUTHOR'S ORGANIZ ATION 11/15/2022 [facility] DATE CREATED AUTHOR AUTHOR'S ORGANIZ ATION 02/06/2023 [employer] DATE CREATED AUTHOR AUTHOR'S ORGANIZ ATION 02/07/2023 [facility] FOR RECORDS PERTAINING TO PATIENTS WHO ARE [...] BE BASED ON THE PRIMARY CLINICAL RECORDS. [employer] provides no warranty or guarantee of the accuracy or completeness of information in this document.
--- NOTE | 2023-05-31 22:34 | ED.RN ---
pt asking for IV. sitting on floor. stated to this RN he was seeing another patient and then assessing her next. Relayed this to patient and visitor. otoscope set up for physician per his request. Patient then told registration she was leaving.
== END 2023-05-31 22:28 | disposition left against medical advice (07) ==
PROVIDERS: Emergency Provider Emergency Medicine; Visit Provider Emergency Medicine
DX: R69 Illness, unspecified (principal); Z53.21 Procedure and treatment not carried out due to patient leaving prior to being seen by health care provider
CPT/HCPCS: 99281

== ENCOUNTER 2023-09-04 08:02 | Emergency (ER) | payer MEDICAID, SELFPAY ==
[2023-09-04 08:03] VITALS: BP 131/92; PULSE 128; RESP 16; TEMP 36.6; O2SAT 99; BMI 23.8
--- NOTE | 2023-09-04 08:14 | ED.VIS.GI ---
HPI HPI - GI History of Present Illness Chief Complaint: Nausea/Vomiting Informant: patient Nausea/Vomiting/Emesis GI Symptom: Positive for Nausea and Vomiting Onset: Weeks Severity: Mild Diarrhea/Melena/Hematochezia GI Symptom: Negative for Diarrhea, Melena or Hematochezia Associated Symptoms Associated Symptoms: Negative for Dysuria, Frequency, Hematuria or Urgency Narrative Narrative: 23-year-old female G2, P0 Ab1 with that being elective. Patient is currently about 8 weeks . [facility] She has had intermittent nausea and vomiting for the last 4 weeks. She is currently on Zofran at home. States she feels dehydrated. Denies any fever. No dysuria. States her urine might be a little cloudy. Denies any vaginal bleeding. No diarrhea. No significant abdominal pain. Prior similar symptoms: Yes Recent Illness/Hospitalization: No PFSH PFSH Medical History Asthma Home Medications albuterol sulfate 90 mcg/actuation aerosol inhaler 1 - 2 puff inhalation Q6H PRN PRN Asthma 06/16/20 [History Last Taken Unknown] diphenhydramine HCl 25 mg capsule (Benadryl) 25 mg PO TID #10 caps 05/24/23 [Rx Last Taken Unknown] famotidine 20 mg tablet (Pepcid) 20 mg PO BID #7 tabs 05/24/23 [Rx Last Taken Unknown] prednisone 20 mg tablet 60 mg (3 x 20 mg) PO DAILY #12 TABLETS 05/24/23 [Rx Last Taken Unknown] cephalexin 500 mg capsule 500 mg PO Q8H #21 caps 09/04/23 [Rx Last Taken Unknown] Allergy/AdvReac Type Severity Reaction Status Date / Time No Known Allergies Allergy Verified 09/04/23 08:05 Surgical History Hx of removal of growth plate Social History household members: family Smoking Status: Unknown if ever smoked alcohol intake: never what type of physical activity do you participate in: other frequency: daily duration: 30-45 minutes/day ROS ROS ED ROS Narrative Nausea and vomiting. Review of Systems ROS Unobtainable: Denies due to encephalopathy Constitutional Constitutional ED: Denies chills or fever(s) ENT ENT ED: Denies ear pain Cardiovascular Cardiovascular: Denies chest pain Respiratory/Chest Respiratory/Chest: Denies cough or dyspnea Gastrointestinal Gastrointestinal: Reports nausea and vomiting; Denies abdominal pain, constipation, diarrhea or melena Genitourinary Genitourinary ED: Denies dysuria or hematuria Musculoskeletal Musculoskeletal: Denies arthralgias Integumentary Denies abscess or Abrasions Neurologic Neurologic: Denies headache(s) Psychiatric Psychiatric: Denies anxiety or depression Endocrine Endocrinology: Denies polydipsia or polyphagia Hematologic/Lymphatic Hematologic/Lymphatic: Denies easy bleeding or easy bruising Allergic/Immunologic Allergic/Immunologic ED: Denies mouth swelling, tongue swelling or urticaria EXAM Physical Exam Narrative Exam Narrative: 23-year-old female no acute distress vital signs stable she is tachycardic. Initial blood pressure 131/92. Afebrile. She does not look septic or toxic. HEENT exam unremarkable except mild dry mucous membranes. Neck nontender no lymphadenopathy. Lungs clear to auscultation bilaterally. Heart tachycardic rate about 120 no murmur. Chest wall and ribs nontender. Abdomen soft, nontender, nondistended, normal bowel sounds without peritoneal signs. There is no right upper or right lower quadrant tenderness. No distention. Patient is moving all 4 extremities. Nontender no edema. Back nontender. Neurologically she is awake and alert with no focal motor deficits. Const Vital Signs: 09/04/23 08:03 Temperature 97.9 F Temperature Source Temporal Pulse Rate 128 H Respiratory Rate 16 Blood Pressure 131/92 H Blood Pressure Mean 105 Pulse Ox 99 Oxygen Delivery Method Room Air Positive well nourished and well developed; Negative for obese, cachectic, contractures or unkempt General Appearance ED: well developed and NAD; Negative for unkempt, cachectic, contractures or pallor Nutritional Appearance: Negative for cachectic or obese HEENT Reports dry mucous membranes; Denies moist mucous membranes normocephalic and atraumatic; Negative for trauma or tenderness Mouth ED: Yes dry mucous membranes Mouth: dry mucous membranes Eyes PERRL and EOMs intact bilaterally General Eye ED: Negative for pale conjunctiva, scleral icterus or other Neck no lymphadenopathy, supple and no JVD General: Negative for tenderness Resp normal respiratory effort and clear to auscultation bilaterally Effort and Inspection: Negative for respiratory distress Auscultation: Negative for rales, rhonchi or wheezes Cardio regular rhythm, S1 normal heart sound, S2 normal heart sound and no murmurs; Negative for regular rate Rate: tachycardic; Negative for bradycardia Rhythm: Negative for abnormal rhythm GI non-tender, non-distended and no masses Inspection: Negative for abdominal distention Palpation: soft; Negative for tender, guarding or rebound tenderness present Back/Spine no CVA tenderness General Back: Negative for CVA tenderness Cervical Spine: Negative for cervical spine tenderness Thoracic Spine / Upper Back: Negative for thoracic spinal tenderness Lumbar Spine / Lower Back: Negative for lumbar spinal tenderness Coccyx: Negative for other Extremity full ROM General Extremety ED: Negative for edema or tenderness General Extremity: Negative for edema Neuro CN's II-XII intact bilaterally and moves all extremities Sensorium / Orientation: alert, oriented to person, oriented to place and oriented to time; Negative for orientation impaired, confused, lethargic or stuporous Motor Exam: strength 5/5 throughout; Negative for general weakness Psych mental status grossly normal and thought process normal Appearance: Negative for unkempt Attitude: No agitated Mood & Affect: Negative for depressed, anxious or tearful Skin no wounds General Skin Exam: Negative for jaundice or pallor Lesions: no lesions Rashes: no rashes Trauma: Negative for abrasion Nails: Negative for discolored MDM MDM MDM Narrative Medical decision making narrative: 23-year-old female currently 8 weeks with nausea vomiting. Exam benign Clinically she looks dehydrated. She will be treated with a liter of normal saline. IV Zofran. P.o. fluid challenge. We will check a urinalysis. Repeat exam patient doing well at 9:10 AM. She is feeling better with IV fluids and Zofran. She felt comfortable being discharged home. We discussed her labs and the possibility of a UTI. She will be placed on Keflex 500 3 times daily for 7 days. Follow-up with her SYSTEMS DEVELOPER due to her . She has Zofran at home for nausea. Lab Data Attestation: I reviewed the patient's lab results. Lab results narrative: Chemistries unremarkable sodium 135. Gap 5. BUN and creatinine of 5 and 0.5. Glucose 157. Urinalysis was contaminated 5-10 0 cells. However it had nitrates and 3+ bacteria. Will be treated as a possible infection. I am not seeing a culture that is a contamination. There was also ketones consistent with mild dehydration. Labs: Laboratory Results - last 24 hr 09/04/23 09/04/23 08:27 08:35 Sodium 135 L Potassium 3.7 Chloride 104 Carbon Dioxide 26.0 Anion Gap 5 BUN 5 L Creatinine 0.52 L Estim Creat Clear Calc 139.49 Est GFR (MDRD) Af Amer 189 Est GFR (MDRD) Non-Af 157 BUN/Creatinine Ratio 9.5 L Glucose 97 Calcium 9.2 Urine Color Yellow Urine Clarity Cloudy Urine pH 5.0 Ur Specific [place] 1.025 Urine Protein 30 H Urine Glucose (UA) Normal Urine Ketones 150 A* Urine Occult Blood 10 H Urine Nitrite Positive H Urine Bilirubin 1 H Urine Urobilinogen 1 H Ur Leukocyte Esterase 25 H Urine RBC 0-5 SEEN Urine WBC 0-5 SEEN Ur Squamous Epith Cells 5-10 SEEN Urine Bacteria 3+ Urine Mucus 1+ Discharge Plan Triage Chief Complaint: Nausea/Vomiting ED Provider: Melecio Shah Dx/Rx/DC Orders Clinical Impression: Urinary tract infection, First trimester , Nausea & vomiting Instructions: Urinary Tract Infections in Women, ED Vomiting (Adult) Prescriptions: New cephalexin 500 mg capsule 500 mg PO Q8H Qty: 21 0RF No Action albuterol sulfate 1 PUFF inhaler 1 - 2 puff INHALATION Q6H PRN PRN (Reason: Asthma) prednisone 20 mg tablet 60 mg PO DAILY Qty: 12 0RF famotidine [Pepcid] 20 mg tablet 20 mg PO BID Qty: 7 0RF diphenhydramine HCl [Benadryl] 25 mg capsule 25 mg PO TID Qty: 10 0RF Primary Care Provider: Care Physician,No Primary Referrals: Care Physician,No Primary [Primary Care Provider] - Activity Restrictions/Additional Instructions: Plenty of fluids and rest. Cranberry juice for the possible UTI. Zofran for your nausea. Your urine looks like it may be infected. Will be started on antibiotic Keflex. 1 pill 3 times a day for the next 7 days. Follow-up with your SYSTEMS DEVELOPER doctor to ensure you are improving. Disposition Disposition: Home, Self Care
[2023-09-04 08:35] LABS: Color, Urine Yellow (Yellow); Glucose, Dipstick Normal (Normal); Leukocyte Esterase-Dipstick 25 /ul (Negative); Nitrite-Dipstick Positive (Negative); Occult Blood-Urine 10 /ul (Negative); Protein-Dipstick 30 mg/dl (Negative); Specific Gravity, Urine 1.025 (1.002-1.030); Urine Clarity Cloudy (Clear); Urine Urobilinogen 1 mg/dl (Normal)
[2023-09-04] MEDS: Ondansetron 4 MG/2 ML Vial IV (08:35)
[2023-09-04] MEDS: 0.9% Normal Saline (1000mL) 1,000 ML 1000 ML IV (08:35)
[2023-09-04 08:36] LABS: Urine Bilirubin Dipstick 1 mg/dL (Negative)
[2023-09-04 08:37] LABS: Ketone-Dipstick 150 mg/dl (Negative)
[2023-09-04 08:42] LABS: Bacteria 3+ /hpf (None Seen); Mucous, Urine 1+ /hpf (<or=2+); Red Blood Cells-Urine 0-5 SEEN /hpf (0-5); Squamous Epithelial Cells - UA 5-10 SEEN /hpf (5-10); White Blood Cells 0-5 SEEN /hpf (0-5)
[2023-09-04 09:02] LABS: Anion Gap 5 (5-15); BUN 5 mg/dL (7-18); BUN/Creat Ratio 9.5 RATIO (10-20); Calcium,Total 9.2 mg/dL (8.5-10.1); Chloride 104 mmol/L (98-107); Creatinine, Serum 0.52 mg/dL (0.55-1.02); EST Glomerular Filtration Rate 157 mL/min (>60); Est Glom Filt Rate - Afr Amer 189 mL/min (>60); Estimated Creatinine Clearance 139.49 ml/min; Glucose 97 mg/dL (74-106); Potassium 3.7 mmol/L (3.5-5.1); Sodium Level 135 mmol/L (136-145)
[2023-09-04 09:17] VITALS: BP 124/78; PULSE 89; RESP 14; TEMP 36.1; O2SAT 99
== END 2023-09-04 09:20 | disposition home or self-care (01) ==
PROVIDERS: Emergency Provider Emergency Medicine; Visit Provider Emergency Medicine
DX: O23.41 Unspecified infection of urinary tract in pregnancy, first trimester (principal); Z3A.08 8 weeks gestation of pregnancy
CPT/HCPCS: 80048; 81001; 96361; 96374; 99283; J7030; J2405

== ENCOUNTER 2023-10-07 14:52 | Emergency (ER) | payer MEDICAID, SELFPAY ==
[2023-10-07 14:53] VITALS: BP 109/81; PULSE 116; RESP 18; TEMP 36.6; O2SAT 98; BMI 22.5
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
== END 2023-10-07 16:29 | disposition home or self-care (01) ==
PROVIDERS: Emergency Provider Emergency Medicine; Visit Provider Emergency Medicine
DX: O99.511 Diseases of the respiratory system complicating pregnancy, first trimester (principal); O99.331 Smoking (tobacco) complicating pregnancy, first trimester; J06.9 Acute upper respiratory infection, unspecified; J45.909 Unspecified asthma, uncomplicated; F17.210 Nicotine dependence, cigarettes, uncomplicated; Z3A.12 12 weeks gestation of pregnancy
CPT/HCPCS: 87631; 99282

== ENCOUNTER 2024-03-10 09:42 | Outpatient (CLI) | payer MEDICAID, SELFPAY ==
[2024-03-10 09:49] VITALS: BMI 30.2
[2024-03-10 10:01] VITALS: BP 135/84; PULSE 80; RESP 16; TEMP 36.8; O2SAT 99
[2024-03-10 10:51] LABS: Bacteria 0 SEEN /hpf (None Seen); Mucous, Urine 0 SEEN /hpf (<or=2+); Red Blood Cells-Urine 0 SEEN /hpf (0-5); White Blood Cells 0 SEEN /hpf (0-5)
[2024-03-10 10:52] LABS: Color, Urine Yellow (Yellow); Glucose, Dipstick Normal (Normal); Ketone-Dipstick Negative (Negative); Leukocyte Esterase-Dipstick 25 /ul (Negative); Nitrite-Dipstick Negative (Negative); Occult Blood-Urine Negative /ul (Negative); Protein-Dipstick Negative (Negative); Urine Bilirubin Dipstick Negative (Negative); Urine Clarity Sl. Cloudy (Clear); Urine Urobilinogen Normal (Normal); Urine pH 6.5 (5.0 - 8.0)
[2024-03-10 11:01] LABS: Squamous Epithelial Cells - UA 5-10 SEEN /hpf (5-10)
--- NOTE | 2024-03-10 17:38 | OB.TRI.NOTE ---
HPI - General HPI Narrative SHIRAZ HERNANDEZ, is a 23 F who presents for contractions. TRI 04/16/24. 34w5d. PFSH PFSH Medical History Asthma Home Medications ?Medication ?Instructions ?Recorded ?Last Taken ?Type albuterol sulfate 90 mcg/actuation 1 - 2 puff inhalation Q6H PRN PRN 06/16/20 Unknown History aerosol inhaler Asthma diphenhydramine HCl 25 mg capsule 25 mg PO TID #10 caps 05/24/23 Unknown Rx (Benadryl) famotidine 20 mg tablet (Pepcid) 20 mg PO BID #7 tabs 05/24/23 Unknown Rx prednisone 20 mg tablet 60 mg (3 x 20 mg) PO DAILY #12 05/24/23 Unknown Rx TABLETS cephalexin 500 mg capsule 500 mg PO Q8H #21 caps 09/04/23 Unknown Rx Allergy/AdvReac Type Severity Reaction Status Date / Time No Known Allergies Allergy Verified 03/10/24 10:38 Surgical History Hx of removal of growth plate Social History household members: family Smoking Status: Current every day smoker tobacco type: cigarettes alcohol intake: never what type of physical activity do you participate in: other frequency: daily duration: 30-45 minutes/day NST FHR Rate Baby A Baseline: 130 Variability:: Moderate Accelerations:: 15 x 15 Decelerations:: None NST Reactive:: Yes Assessment & Plan (1) False labor: (2) 34 weeks gestation of : PLAN: Plan 1) No cervical change or contractions 2) UA and Urine culture sent 3) D/C home
== END 2024-03-10 11:49 | disposition home or self-care (01) ==
LOC: WPOUT 09:47 → WP 09:48
PROVIDERS: Referring Provider Advanced Practice Midwife; Visit Provider Advanced Practice Midwife
DX: O47.03 False labor before 37 completed weeks of gestation, third trimester (principal); Z3A.34 34 weeks gestation of pregnancy
CPT/HCPCS: 59025; 59050; 81001; 99221; G0378

== ENCOUNTER 2024-03-13 11:08 | Outpatient (CLI) | payer MEDICAID, SELFPAY ==
[2024-03-13 11:16] VITALS: BP 123/74; PULSE 81
[2024-03-13 11:19] VITALS: PULSE 86; O2SAT 98
[2024-03-13 11:24] VITALS: PULSE 86; O2SAT 97
[2024-03-13 11:27] VITALS: BMI 30.6
[2024-03-13 11:29] VITALS: PULSE 86; O2SAT 98
[2024-03-13 12:02] LABS: Color, Urine Yellow (Yellow); Glucose, Dipstick Normal (Normal); Ketone-Dipstick 5 mg/dl (Negative); Leukocyte Esterase-Dipstick 25 /ul (Negative); Nitrite-Dipstick Negative (Negative); Occult Blood-Urine Negative /ul (Negative); Protein-Dipstick 30 mg/dl (Negative); Urine Bilirubin Dipstick Negative (Negative); Urine Clarity Sl. Cloudy (Clear); Urine Urobilinogen 1 mg/dl (Normal)
[2024-03-13 12:18] LABS: ROM Internal Control Test YES-OK TO RESULT pt. (Internal QC); ROM Patient Test Negative (Negative)
--- NOTE | 2024-03-13 12:37 | OB.TRI.NOTE ---
HPI - General General Date of Admission: 03/13/24 Date of Service: 03/13/24 Chief Complaint: back pain, contractions HPI Narrative SHIRAZ HERNANDEZ, is a 23 F 2 para 0 at 35 and 1 sevenths weeks presents complaining of several days of low back pain and some. Like cramping. She denies any gross vaginal bleeding but reports that maybe she had some leaking of fluid. She has had good movement. She denies any fevers or chills. She had 1 episode of emesis yesterday. She denies any headache or visual changes or epigastric pain. She denies any diarrhea or constipation or dysuria or hematuria. Maternal Data Information Final TRI: 04/16/24 Gestational age: 35 05/27 PFSH PFS Medical History Asthma Home Medications ?Medication ?Instructions ?Recorded ?Last Taken ?Type albuterol sulfate 90 mcg/actuation 1 - 2 puff inhalation Q6H PRN PRN 06/16/20 Unknown History aerosol inhaler Asthma diphenhydramine HCl 25 mg capsule 25 mg PO TID #10 caps 05/24/23 Unknown Rx (Benadryl) famotidine 20 mg tablet (Pepcid) 20 mg PO BID #7 tabs 05/24/23 Unknown Rx prednisone 20 mg tablet 60 mg (3 x 20 mg) PO DAILY #12 05/24/23 Unknown Rx TABLETS cephalexin 500 mg capsule 500 mg PO Q8H #21 caps 09/04/23 Unknown Rx Allergy/AdvReac Type Severity Reaction Status Date / Time No Known Allergies Allergy Verified 03/10/24 10:38 Surgical History Hx of removal of growth plate Social History household members: family Smoking Status: Current every day smoker tobacco type: cigarettes alcohol intake: never what type of physical activity do you participate in: other frequency: daily duration: 30-45 minutes/day Physical Exam Narrative awake, alert, NAD abd- soft, nontender, gravid, no CVA tenderness. Ext- trace edema NST FHR Rate Baby A Baseline: 135 Variability:: Moderate Accelerations:: 15 x 15 Decelerations:: None NST Reactive:: Yes Uterine Activity:: irreg ctxs. Assessment & Plan (1) Threatened labor, antepartum: PLAN: Back pain and mild contractions in . Reassured no evidence of active labor. Urinalysis reviewed. Encouraged to push fluids. Use heat or ice as needed. If musculoskeletal low back pain in continues encouraged her to contact the office and we can order physical therapy. May use Tylenol, heat and massage as needed for pain control measures. Reviewed labor precautions. Follow-up in the office as scheduled or return as needed.
[2024-03-13 17:34] VITALS: BP 123/76; PULSE 88
== END 2024-03-13 12:35 | disposition home or self-care (01) ==
LOC: WPOUT 11:12 → WP 11:13
PROVIDERS: Referring Provider Advanced Practice Midwife; Visit Provider Advanced Practice Midwife
DX: O47.03 False labor before 37 completed weeks of gestation, third trimester (principal); O99.333 Smoking (tobacco) complicating pregnancy, third trimester; F17.210 Nicotine dependence, cigarettes, uncomplicated; Z3A.35 35 weeks gestation of pregnancy
CPT/HCPCS: 59025; 59050; 81002; 84112; 99221; G0378

== ENCOUNTER 2024-03-23 22:00 | Outpatient (CLI) | payer MEDICAID, SELFPAY ==
[2024-03-23] VITALS (8 sets, daily range): BP systolic 144–163; BP diastolic 94–106; PULSE 62–86; RESP 16; TEMP 36.3; O2SAT 99; BMI 32.0
[2024-03-23 22:57] LABS: ROM Internal Control Test YES-OK TO RESULT pt. (Internal QC); ROM Patient Test Negative (Negative)
[2024-03-23 23:38] LABS: Mucous, Urine 0 SEEN /hpf (<or=2+); Red Blood Cells-Urine 0 SEEN /hpf (0-5); White Blood Cells 0 SEEN /hpf (0-5)
[2024-03-23 23:42] LABS: Hematocrit 32.2 % (37-47); Hemoglobin 11.2 g/dL (12.0-15.0); Mean Corp Hgb Conc 34.8 g/dL (32-36); Mean Corpuscular Hgb 28.9 pg (27.0-32.0); Mean Platelet Vol. 12.1 fl (6.2-12.0); Platelet Count 207 K/mm3 (150-450); RBC Distribution Width CV 12.9 % (11.6-14.6); RBC Distribution Width SD 38.4 fl (35.1-43.9); Red Blood Count 3.88 M/mm3 (4.2-5.4); White Blood Count 6.9 K/mm3 (4.4-11.0)
[2024-03-23 23:46] LABS: Glucose, Dipstick Normal (Normal); Ketone-Dipstick Negative (Negative); Leukocyte Esterase-Dipstick Negative /ul (Negative); Nitrite-Dipstick Negative (Negative); Occult Blood-Urine Negative /ul (Negative); Protein-Dipstick 100 mg/dl (Negative); Urine Bilirubin Dipstick Negative (Negative); Urine Urobilinogen Normal (Normal); Urine pH 6.5 (5.0 - 8.0)
[2024-03-23 23:50] LABS: Prothrombin Time (Protime)PT. 13.1 SECONDS (11.7-14.9)
[2024-03-23 23:51] LABS: Partial Thromboplast Time 29.8 Seconds (24.1-36.2)
[2024-03-23 23:52] LABS: Protein, Urine (Random) 76.7 mg/dL (<11.9); Protein:Creat Ratio 1287 mg/g CRE (0-200)
[2024-03-23 23:54] LABS: Bacteria RARE /hpf (None Seen); Color, Urine Yellow (Yellow); Squamous Epithelial Cells - UA 0-5 SEEN /hpf (5-10); Urine Clarity Clear (Clear)
[2024-03-23 23:59] LABS: AST(SGOT) 16 U/L (15-37); Alanine Aminotransfer ALT/SGPT 11 U/L (13-56); Creatinine, Serum 0.66 mg/dL (0.55-1.02); EST Glomerular Filtration Rate 119 mL/min (>60); Est Glom Filt Rate - Afr Amer 144 mL/min (>60); Estimated Creatinine Clearance 126.52 ml/min; LDH 201 U/L (84-246); Uric Acid 5.5 mg/dL (2.6-6.0)
[2024-03-24 00:13] VITALS: BP 146/95; PULSE 82
[2024-03-24 00:28] VITALS: BP 145/92; PULSE 78
[2024-03-24 00:43] VITALS: BP 139/92; PULSE 77
[2024-03-24 00:57] VITALS: BP 134/86; PULSE 83
[2024-03-24] MEDS: Acetaminophen 500 MG Tablet 1000 MG PO (01:49)
--- NOTE | 2024-03-26 08:56 | OB.TRI.NOTE ---
HPI - General General Date of Admission: 03/23/24 Date of Service: 03/23/24 Chief Complaint: headache, contractions HPI Narrative SHIRAZ HERNANDEZ, is a 23 F who presents c/o ESPINOSA and contractions. Maternal Data Information Final TRI: 04/16/24 Gestational age: 36 4/7 PFSH [facility] Medical History Asthma Home Medications ?Medication ?Instructions ?Recorded ?Last Taken ?Type albuterol sulfate 90 mcg/actuation 1 - 2 puff inhalation Q6H PRN PRN 06/16/20 Unknown History aerosol inhaler Asthma diphenhydramine HCl 25 mg capsule 25 mg PO TID #10 caps 05/24/23 03/09/24 08:00 Rx (Benadryl) famotidine 20 mg tablet (Pepcid) 20 mg PO BID #7 tabs 05/24/23 Unknown Rx vit no.95-ferrous 1 tab PO DAILY see provider 03/23/24 03/23/24 08:22 History fumarate 28 mg-folic acid 800 mcg tablet () Allergy/AdvReac Type Severity Reaction Status Date / Time No Known Allergies Allergy Verified 03/23/24 22:19 Surgical History Hx of removal of growth plate Social History household members: family Smoking Status: Current every day smoker tobacco type: cigarettes alcohol intake: never what type of physical activity do you participate in: other frequency: daily duration: 30-45 minutes/day NST FHR Rate Baby A Baseline: 120 Variability:: Moderate Accelerations:: 15 x 15 Decelerations:: None NST Reactive:: Yes Uterine Activity:: irreg ctxs Assessment & Plan (1) Threatened labor, antepartum: PLAN: No evidence of active labor. Labs showed mild preeclampsia. Patient was scheduled for induction at 37 weeks and instructed to return or call for signs or symptoms of severe preeclampsia. (2) 36 weeks gestation of :
== END 2024-03-24 01:55 | disposition home or self-care (01) ==
LOC: WPOUT 22:04 → WP 22:04
PROVIDERS: Referring Provider Advanced Practice Midwife; Visit Provider Advanced Practice Midwife
DX: O47.03 False labor before 37 completed weeks of gestation, third trimester (principal); O99.333 Smoking (tobacco) complicating pregnancy, third trimester; O99.513 Diseases of the respiratory system complicating pregnancy, third trimester; F17.210 Nicotine dependence, cigarettes, uncomplicated; J45.909 Unspecified asthma, uncomplicated; Z3A.36 36 weeks gestation of pregnancy; Z79.51 Long term (current) use of inhaled steroids
CPT/HCPCS: 59025; 59050 ×2; 81001; 82565; 82570; 83615; 84112; 84156; 84450; 84460; 84550; 85027; 85610; 85730; G0378 ×2; 99221

== ENCOUNTER 2024-03-26 22:09 | Inpatient (IN) | payer MEDICAID, SELFPAY ==
[2024-03-26 20:39] VITALS: TEMP 36.4
[2024-03-26 20:40] VITALS: BP 142/93; PULSE 60; PULSE 71; O2SAT 95
[2024-03-26 22:06] VITALS: BMI 32.5
[2024-03-26 22:56] LABS: Absolute Lymphocyte Count 1.88 X10^3/uL (0.83-4.51); Absolute Neutrophil Count 4.4 X10^3/uL (2.0-7.7); Basophil# 0.04 X10^3/uL; Basophil% 0.6 % (0-1); Eosinophils% 2.9 % (0-5); Hematocrit 29.5 % (37-47); Hemoglobin 10.3 g/dL (12.0-15.0); Lymphocyte # 1.88 X10^3/ul (0.83-4.51); Lymphocyte % 27.2 % (19-41); Mean Corp Hgb Conc 34.9 g/dL (32-36); Mean Corpuscular Hgb 28.9 pg (27.0-32.0); Mean Corpuscular Volume 82.9 fL (81-99); Mean Platelet Vol. 11.9 fl (6.2-12.0); Monocyte% 5.8 % (0-10); NRBC Flagged by Analyzer 0 % (0-5); Neutrophil # 4.39 X10^3/uL (2.7-7.7); Neutrophil % 63.4 % (47-70); Platelet Count 186 K/mm3 (150-450); RBC Distribution Width CV 12.7 % (11.6-14.6); RBC Distribution Width SD 38.2 fl (35.1-43.9); Red Blood Count 3.56 M/mm3 (4.2-5.4); White Blood Count 6.9 K/mm3 (4.4-11.0)
[2024-03-26 23:15] LABS: AST(SGOT) 16 U/L (15-37); Alanine Aminotransfer ALT/SGPT 12 U/L (13-56); Creatinine, Serum 0.63 mg/dL (0.55-1.02); EST Glomerular Filtration Rate 127 mL/min (>60); Est Glom Filt Rate - Afr Amer 154 mL/min (>60); Estimated Creatinine Clearance 133.54 ml/min; Uric Acid 5.8 mg/dL (2.6-6.0)
[2024-03-26 23:36] LABS: Syphilis Antibodies Non-reactive
[2024-03-26 23:41] VITALS: BP 183/100; PULSE 62
[2024-03-26 23:42] VITALS: PULSE 59; O2SAT 98
[2024-03-26 23:54] VITALS: BP 160/90; PULSE 64
[2024-03-27] VITALS (304 sets, daily range): BP systolic 111–177; BP diastolic 55–106; PULSE 60–183; RESP 12–18; TEMP 35.9–36.8; O2SAT 74–100
[2024-03-27] MEDS: miSOPROStol 25 MCG TABLET PO ×2 (00:26→04:44)
[2024-03-27] MEDS: NIFEdipine 10 MG Capsule PO (01:06)
[2024-03-27] MEDS: Magnesium Sulfate 4gm/100mL 4 GM/100 ML IV.SOLN. IV (01:07)
[2024-03-27] MEDS: Lactated Ringers 1,000 ML 25 ML IV (01:08)
[2024-03-27] MEDS: Magnesium Sulfate 20 GM/500 ML BAG IV ×3 (01:32→21:08)
[2024-03-27] MEDS: NIFEdipine 30 MG Tablet PO ×2 (02:29→21:09)
[2024-03-27 02:44] LABS: Amphetamine Urine VISTA NEGATIVE (<1000 ng/mL); Barbiturate Urine VISTA NEGATIVE (< 200 ng/mL); Benzodiazepine Urine VISTA NEGATIVE (< 200 ng/mL); Cocaine Urine VISTA NEGATIVE (< 300 ng/mL); Ecstacy Urine VISTA NEGATIVE (< 500 ng/mL); Methadone Urine VISTA NEGATIVE (< 300 ng/mL); PCP Urine VISTA NEGATIVE (< 25 ng/mL); THC Urine VISTA POSITIVE (< 50 ng/mL); Vista UDS pH Range 6
[2024-03-27] MEDS: Acetaminophen 500 MG Tablet PO (05:17)
--- NOTE | 2024-03-27 08:08 | PCM.HP.OB ---
HPI - General General Date of Admission: 03/26/24 Date of Service: 03/26/24 Chief Complaint: pre E HPI Narrative SHIRAZ HERNANDEZ, is a 23 F who presents induction of labor for pre E. Urine pr/cr 1257. Serology WNL. No headache. Severe BPs on admission. [place] protocl started and magnesium started. Maternal Data Information Final TRI: 04/16/24 Gestational age: 39 PFSH PFSH Medical History Depression Anxiety Acquired trigger finger of left ring finger Asthma Home Medications ?Medication ?Instructions ?Recorded ?Last Taken ?Type albuterol sulfate 90 mcg/actuation 1 - 2 puff inhalation Q6H PRN PRN 06/16/20 Unknown History aerosol inhaler Asthma vit no.95-ferrous 1 tab PO DAILY see provider 03/23/24 03/26/24 08:00 History fumarate 28 mg-folic acid 800 mcg tablet () Allergy/AdvReac Type Severity Reaction Status Date / Time No Known Allergies Allergy Verified 03/26/24 23:42 Surgical History Hx of tonsillectomy Hx of removal of growth plate Social History household members: family Smoking Status: Current every day smoker tobacco type: cigarettes alcohol intake: never what type of physical activity do you participate in: other frequency: daily duration: 30-45 minutes/day History Elective abortions Hx Para 0 Spontaneous abortions Hx # Term Pregnancies Ectopic pregnancies Hx # Pregnancies Multiple births # of living children NST FHR Rate Baby A Baseline: 120 Variability:: Moderate Accelerations:: 15 x 15 Decelerations:: None NST Reactive:: Yes FHR Category:: Category I Uterine Activity:: random ROS Constitutional Constitutional: Denies fatigue, fever(s) or malaise Eyes Eyes: Denies change in vision ENT HEENT: Denies dizziness or headache(s) Cardiovascular Cardiovascular: Denies chest pain, dyspnea or lightheadedness Respiratory/Chest Respiratory/Chest: Denies cough or dyspnea Gastrointestinal Gastrointestinal: Denies change in bowel habits Genitourinary Genitourinary: Denies burning urination or genital lesions Integumentary Integumentary: Denies rash Neurologic Neurologic: Denies confusion, dizziness, headache(s), numbness or weakness Vital Signs Vital Signs Vital Signs: 03/26/24 20:39 03/26/24 20:39 03/26/24 20:40 Temperature 97.6 F L Temperature Source Temporal Pulse Rate 71 Respiratory Rate Respiratory Effort Respiratory Depth Respiratory Pattern Blood Pressure Blood Pressure Mean BP Systolic BP Diastolic Blood Pressure Source Blood Pressure Position Blood Pressure Location Pulse Ox Oxygen Delivery Method 03/26/24 20:40 03/26/24 20:40 03/26/24 20:40 Temperature Temperature Source Pulse Rate 60 Respiratory Rate Respiratory Effort Respiratory Depth Respiratory Pattern Blood Pressure 142/93 H Blood Pressure Mean BP Systolic 142 BP Diastolic 93 Blood Pressure Source Blood Pressure Position Blood Pressure Location Pulse Ox 95 Oxygen Delivery Method 03/26/24 23:41 03/26/24 23:41 03/26/24 23:42 Temperature Temperature Source Pulse Rate 62 59 L Respiratory Rate Respiratory Effort Respiratory Depth Respiratory Pattern Blood Pressure 183/100 H Blood Pressure Mean BP Systolic 183 BP Diastolic 100 Blood Pressure Source Blood Pressure Position Blood Pressure Location Pulse Ox Oxygen Delivery Method 03/26/24 23:42 03/26/24 23:54 03/26/24 23:54 Temperature Temperature Source Pulse Rate 64 Respiratory Rate Respiratory Effort Respiratory Depth Respiratory Pattern Blood Pressure 160/90 H Blood Pressure Mean BP Systolic 160 BP Diastolic 90 Blood Pressure Source Blood Pressure Position Blood Pressure Location Pulse Ox 98 Oxygen Delivery Method 03/27/24 00:21 03/27/24 00:21 03/27/24 00:40 Temperature Temperature Source Pulse Rate 85 Respiratory Rate Respiratory Effort Respiratory Depth Respiratory Pattern Blood Pressure 134/87 H 173/100 H Blood Pressure Mean BP Systolic 134 173 BP Diastolic 87 100 Blood Pressure Source Blood Pressure Position Blood Pressure Location Pulse Ox Oxygen Delivery Method 03/27/24 00:40 03/27/24 00:41 03/27/24 00:41 Temperature Temperature Source Temporal Pulse Rate 70 Respiratory Rate 18 Respiratory Effort Respiratory Depth Respiratory Pattern Blood Pressure Blood Pressure Mean BP Systolic BP Diastolic Blood Pressure Source Blood Pressure Position Blood Pressure Location Pulse Ox Oxygen Delivery Method 03/27/24 00:41 03/27/24 00:55 03/27/24 00:55 Temperature 97.8 F Temperature Source Pulse Rate 63 Respiratory Rate Respiratory Effort Respiratory Depth Respiratory Pattern Blood Pressure 171/103 H Blood Pressure Mean BP Systolic 171 BP Diastolic 103 Blood Pressure Source Blood Pressure Position Blood Pressure Location Pulse Ox Oxygen Delivery Method 03/27/24 01:08 03/27/24 01:08 03/27/24 01:11 Temperature 97.8 F Temperature Source Temporal Temporal Pulse Rate 68 Respiratory Rate 18 Respiratory Effort Normal Non-Labored Respiratory Depth Normal Respiratory Pattern Normal Blood Pressure 160/90 H 147/87 H Blood Pressure Mean 113 BP Systolic 147 BP Diastolic 87 Blood Pressure Source Monitor Blood Pressure Position Semi-Fowlers Blood Pressure Location Left Arm Pulse Ox 98 Oxygen Delivery Method Room Air 03/27/24 01:11 03/27/24 01:15 03/27/24 01:15 Temperature Temperature Source Pulse Rate 62 68 Respiratory Rate Respiratory Effort Respiratory Depth Respiratory Pattern Blood Pressure Blood Pressure Mean BP Systolic BP Diastolic Blood Pressure Source Blood Pressure Position Blood Pressure Location Pulse Ox 98 Oxygen Delivery Method 03/27/24 01:20 03/27/24 01:20 03/27/24 01:25 Temperature Temperature Source Pulse Rate 74 74 Respiratory Rate Respiratory Effort Respiratory Depth Respiratory Pattern Blood Pressure Blood Pressure Mean BP Systolic BP Diastolic Blood Pressure Source Blood Pressure Position Blood Pressure Location Pulse Ox 98 Oxygen Delivery Method 03/27/24 01:25 03/27/24 01:25 03/27/24 01:25 Temperature Temperature Source Pulse Rate 80 Respiratory Rate Respiratory Effort Respiratory Depth Respiratory Pattern Blood Pressure 132/89 H Blood Pressure Mean BP Systolic 132 BP Diastolic 89 Blood Pressure Source Blood Pressure Position Blood Pressure Location Pulse Ox 97 Oxygen Delivery Method 03/27/24 01:25 03/27/24 01:30 03/27/24 01:30 Temperature Temperature Source Pulse Rate 83 78 Respiratory Rate 16 Respiratory Effort Normal Respiratory Depth Normal Respiratory Pattern Normal Blood Pressure 132/89 H Blood Pressure Mean 103 BP Systolic BP Diastolic Blood Pressure Source Monitor Blood Pressure Position Semi-Fowlers Blood Pressure Location Left Arm Pulse Ox 97 98 Oxygen Delivery Method Room Air 03/27/24 01:35 03/27/24 01:35 03/27/24 01:40 Temperature Temperature Source Pulse Rate 69 70 Respiratory Rate Respiratory Effort Respiratory Depth Respiratory Pattern Blood Pressure Blood Pressure Mean BP Systolic BP Diastolic Blood Pressure Source Blood Pressure Position Blood Pressure Location Pulse Ox 97 Oxygen Delivery Method 03/27/24 01:40 03/27/24 01:40 03/27/24 01:40 Temperature Temperature Source Pulse Rate 72 Respiratory Rate Respiratory Effort Respiratory Depth Respiratory Pattern Blood Pressure 149/86 H Blood Pressure Mean BP Systolic 149 BP Diastolic 86 Blood Pressure Source Blood Pressure Position Blood Pressure Location Pulse Ox 98 Oxygen Delivery Method 03/27/24 01:44 03/27/24 01:46 03/27/24 01:46 Temperature Temperature Source Pulse Rate 76 81 Respiratory Rate 16 Respiratory Effort Respiratory Depth Respiratory Pattern Blood Pressure 149/86 H Blood Pressure Mean 107 BP Systolic BP Diastolic Blood Pressure Source Monitor Blood Pressure Position Semi-Fowlers Blood Pressure Location Left Arm Pulse Ox 98 97 Oxygen Delivery Method Room Air 03/27/24 01:51 03/27/24 01:51 03/27/24 01:55 Temperature Temperature Source Pulse Rate 85 Respiratory Rate Respiratory Effort Respiratory Depth Respiratory Pattern Blood Pressure 150/89 H Blood Pressure Mean BP Systolic 150 BP Diastolic 89 Blood Pressure Source Blood Pressure Position Blood Pressure Location Pulse Ox 98 Oxygen Delivery Method 03/27/24 01:55 03/27/24 01:55 03/27/24 01:56 Temperature Temperature Source Pulse Rate 75 77 80 Respiratory Rate 16 Respiratory Effort Respiratory Depth Respiratory Pattern Blood Pressure 150/89 H Blood Pressure Mean 109 BP Systolic BP Diastolic Blood Pressure Source Monitor Blood Pressure Position Blood Pressure Location Left Arm Pulse Ox Oxygen Delivery Method Room Air 03/27/24 01:56 03/27/24 02:05 03/27/24 02:06 Temperature Temperature Source Pulse Rate 77 78 Respiratory Rate 16 Respiratory Effort Respiratory Depth Respiratory Pattern Blood Pressure 153/86 H Blood Pressure Mean 108 BP Systolic BP Diastolic Blood Pressure Source Monitor Blood Pressure Position Semi-Fowlers Blood Pressure Location Left Arm Pulse Ox 98 Oxygen Delivery Method 03/27/24 02:06 03/27/24 02:06 03/27/24 02:06 Temperature 97.1 F L Temperature Source Temporal Pulse Rate Respiratory Rate Respiratory Effort Respiratory Depth Respiratory Pattern Blood Pressure Blood Pressure Mean BP Systolic BP Diastolic Blood Pressure Source Blood Pressure Position Blood Pressure Location Pulse Ox 99 Oxygen Delivery Method 03/27/24 02:11 03/27/24 02:11 03/27/24 02:11 Temperature Temperature Source Pulse Rate 82 Respiratory Rate Respiratory Effort Respiratory Depth Respiratory Pattern Blood Pressure 153/86 H Blood Pressure Mean BP Systolic 153 BP Diastolic 86 Blood Pressure Source Blood Pressure Position Blood Pressure Location Pulse Ox 99 Oxygen Delivery Method 03/27/24 02:11 03/27/24 02:16 03/27/24 02:16 Temperature Temperature Source Pulse Rate 77 85 Respiratory Rate Respiratory Effort Respiratory Depth Respiratory Pattern Blood Pressure Blood Pressure Mean BP Systolic BP Diastolic Blood Pressure Source Blood Pressure Position Blood Pressure Location Pulse Ox 98 Oxygen Delivery Method 03/27/24 02:20 03/27/24 02:21 03/27/24 02:21 Temperature Temperature Source Pulse Rate 83 91 Respiratory Rate 16 Respiratory Effort Normal Respiratory Depth Normal Respiratory Pattern Normal Blood Pressure Blood Pressure Mean BP Systolic BP Diastolic Blood Pressure Source Blood Pressure Position Blood Pressure Location Pulse Ox 99 97 Oxygen Delivery Method Room Air 03/27/24 02:26 03/27/24 02:26 03/27/24 02:26 Temperature Temperature Source Pulse Rate 85 Respiratory Rate Respiratory Effort Respiratory Depth Respiratory Pattern Blood Pressure 127/67 H Blood Pressure Mean BP Systolic 127 BP Diastolic 67 Blood Pressure Source Blood Pressure Position Blood Pressure Location Pulse Ox 99 Oxygen Delivery Method 03/27/24 02:26 03/27/24 02:31 03/27/24 02:31 Temperature Temperature Source Pulse Rate 80 88 Respiratory Rate Respiratory Effort Respiratory Depth Respiratory Pattern Blood Pressure Blood Pressure Mean BP Systolic BP Diastolic Blood Pressure Source Blood Pressure Position Blood Pressure Location Pulse Ox 99 Oxygen Delivery Method 03/27/24 02:35 03/27/24 02:36 03/27/24 02:36 Temperature Temperature Source Pulse Rate 81 82 Respiratory Rate 16 Respiratory Effort Respiratory Depth Respiratory Pattern Blood Pressure 127/67 H Blood Pressure Mean 87 BP Systolic BP Diastolic Blood Pressure Source Monitor Blood Pressure Position Semi-Fowlers Blood Pressure Location Left Arm Pulse Ox 98 98 Oxygen Delivery Method Room Air 03/27/24 02:40 03/27/24 02:40 03/27/24 02:41 Temperature Temperature Source Pulse Rate 86 84 Respiratory Rate Respiratory Effort Respiratory Depth Respiratory Pattern Blood Pressure 116/56 L Blood Pressure Mean BP Systolic 116 BP Diastolic 56 Blood Pressure Source Blood Pressure Position Blood Pressure Location Pulse Ox Oxygen Delivery Method 03/27/24 02:41 03/27/24 02:46 03/27/24 02:46 Temperature Temperature Source Pulse Rate 88 Respiratory Rate Respiratory Effort Respiratory Depth Respiratory Pattern Blood Pressure Blood Pressure Mean BP Systolic BP Diastolic Blood Pressure Source Blood Pressure Position Blood Pressure Location Pulse Ox 98 98 Oxygen Delivery Method 03/27/24 02:51 03/27/24 02:51 03/27/24 02:53 Temperature Temperature Source Pulse Rate 82 Respiratory Rate Respiratory Effort Respiratory Depth Respiratory Pattern Blood Pressure 122/62 H Blood Pressure Mean BP Systolic 122 BP Diastolic 62 Blood Pressure Source Blood Pressure Position Blood Pressure Location Pulse Ox 98 Oxygen Delivery Method 03/27/24 02:53 03/27/24 02:55 03/27/24 02:55 Temperature Temperature Source Pulse Rate 96 83 Respiratory Rate Respiratory Effort Respiratory Depth Respiratory Pattern Blood Pressure 111/56 L Blood Pressure Mean BP Systolic 111 BP Diastolic 56 Blood Pressure Source Blood Pressure Position Blood Pressure Location Pulse Ox Oxygen Delivery Method 03/27/24 02:56 03/27/24 02:56 03/27/24 03:01 Temperature Temperature Source Pulse Rate 84 89 Respiratory Rate Respiratory Effort Respiratory Depth Respiratory Pattern Blood Pressure Blood Pressure Mean BP Systolic BP Diastolic Blood Pressure Source Blood Pressure Position Blood Pressure Location Pulse Ox 98 Oxygen Delivery Method 03/27/24 03:01 03/27/24 03:06 03/27/24 03:06 Temperature Temperature Source Pulse Rate 79 Respiratory Rate Respiratory Effort Respiratory Depth Respiratory Pattern Blood Pressure Blood Pressure Mean BP Systolic BP Diastolic Blood Pressure Source Blood Pressure Position Blood Pressure Location Pulse Ox 98 98 Oxygen Delivery Method 03/27/24 03:07 03/27/24 03:07 03/27/24 03:10 Temperature Temperature Source Pulse Rate 82 Respiratory Rate Respiratory Effort Respiratory Depth Respiratory Pattern Blood Pressure 141/75 H 127/66 H Blood Pressure Mean BP Systolic 141 127 BP Diastolic 75 66 Blood Pressure Source Blood Pressure Position Blood Pressure Location Pulse Ox Oxygen Delivery Method 03/27/24 03:10 03/27/24 03:10 03/27/24 03:10 Temperature Temperature Source Pulse Rate 78 77 Respiratory Rate Respiratory Effort Respiratory Depth Respiratory Pattern Blood Pressure Blood Pressure Mean BP Systolic BP Diastolic Blood Pressure Source Blood Pressure Position Blood Pressure Location Pulse Ox 98 Oxygen Delivery Method 03/27/24 03:16 03/27/24 03:16 03/27/24 03:21 Temperature Temperature Source Pulse Rate 80 75 Respiratory Rate Respiratory Effort Respiratory Depth Respiratory Pattern Blood Pressure Blood Pressure Mean BP Systolic BP Diastolic Blood Pressure Source Blood Pressure Position Blood Pressure Location Pulse Ox 98 Oxygen Delivery Method 03/27/24 03:21 03/27/24 03:25 03/27/24 03:25 Temperature Temperature Source Pulse Rate 77 Respiratory Rate Respiratory Effort Respiratory Depth Respiratory Pattern Blood Pressure 127/75 H Blood Pressure Mean BP Systolic 127 BP Diastolic 75 Blood Pressure Source Blood Pressure Position Blood Pressure Location Pulse Ox 98 Oxygen Delivery Method 03/27/24 03:27 03/27/24 03:27 03/27/24 03:28 Temperature Temperature Source Pulse Rate 79 81 Respiratory Rate 16 Respiratory Effort Respiratory Depth Respiratory Pattern Blood Pressure 127/55 H Blood Pressure Mean 79 BP Systolic BP Diastolic Blood Pressure Source Monitor Blood Pressure Position Semi-Fowlers Blood Pressure Location Left Arm Pulse Ox 98 98 Oxygen Delivery Method Room Air 03/27/24 03:32 03/27/24 03:32 03/27/24 03:37 Temperature Temperature Source Pulse Rate 89 85 Respiratory Rate Respiratory Effort Respiratory Depth Respiratory Pattern Blood Pressure Blood Pressure Mean BP Systolic BP Diastolic Blood Pressure Source Blood Pressure Position Blood Pressure Location Pulse Ox 98 Oxygen Delivery Method 03/27/24 03:37 03/27/24 03:40 03/27/24 03:40 Temperature Temperature Source Pulse Rate 69 Respiratory Rate Respiratory Effort Respiratory Depth Respiratory Pattern Blood Pressure 131/74 H Blood Pressure Mean BP Systolic 131 BP Diastolic 74 Blood Pressure Source Blood Pressure Position Blood Pressure Location Pulse Ox 98 Oxygen Delivery Method 03/27/24 03:42 03/27/24 03:42 03/27/24 03:47 Temperature Temperature Source Pulse Rate 75 76 Respiratory Rate Respiratory Effort Respiratory Depth Respiratory Pattern Blood Pressure Blood Pressure Mean BP Systolic BP Diastolic Blood Pressure Source Blood Pressure Position Blood Pressure Location Pulse Ox 97 Oxygen Delivery Method 03/27/24 03:47 03/27/24 03:52 03/27/24 03:52 Temperature Temperature Source Pulse Rate 82 Respiratory Rate Respiratory Effort Respiratory Depth Respiratory Pattern Blood Pressure Blood Pressure Mean BP Systolic BP Diastolic Blood Pressure Source Blood Pressure Position Blood Pressure Location Pulse Ox 98 98 Oxygen Delivery Method 03/27/24 03:55 03/27/24 03:55 03/27/24 03:57 Temperature Temperature Source Pulse Rate 71 93 Respiratory Rate Respiratory Effort Respiratory Depth Respiratory Pattern Blood Pressure 136/78 H Blood Pressure Mean BP Systolic 136 BP Diastolic 78 Blood Pressure Source Blood Pressure Position Blood Pressure Location Pulse Ox Oxygen Delivery Method 03/27/24 03:57 03/27/24 04:02 03/27/24 04:02 Temperature Temperature Source Pulse Rate 78 Respiratory Rate Respiratory Effort Respiratory Depth Respiratory Pattern Blood Pressure Blood Pressure Mean BP Systolic BP Diastolic Blood Pressure Source Blood Pressure Position Blood Pressure Location Pulse Ox 100 98 Oxygen Delivery Method 03/27/24 04:07 03/27/24 04:07 03/27/24 04:10 Temperature Temperature Source Pulse Rate 77 Respiratory Rate Respiratory Effort Respiratory Depth Respiratory Pattern Blood Pressure 124/62 H Blood Pressure Mean BP Systolic 124 BP Diastolic 62 Blood Pressure Source Blood Pressure Position Blood Pressure Location Pulse Ox 97 Oxygen Delivery Method 03/27/24 04:10 03/27/24 04:12 03/27/24 04:12 Temperature Temperature Source Pulse Rate 75 75 Respiratory Rate Respiratory Effort Respiratory Depth Respiratory Pattern Blood Pressure Blood Pressure Mean BP Systolic BP Diastolic Blood Pressure Source Blood Pressure Position Blood Pressure Location Pulse Ox 98 Oxygen Delivery Method 03/27/24 04:17 03/27/24 04:17 03/27/24 04:22 Temperature Temperature Source Pulse Rate 76 80 Respiratory Rate Respiratory Effort Respiratory Depth Respiratory Pattern Blood Pressure Blood Pressure Mean BP Systolic BP Diastolic Blood Pressure Source Blood Pressure Position Blood Pressure Location Pulse Ox 98 Oxygen Delivery Method 03/27/24 04:22 03/27/24 04:25 03/27/24 04:25 Temperature Temperature Source Pulse Rate 82 Respiratory Rate Respiratory Effort Respiratory Depth Respiratory Pattern Blood Pressure 125/65 H Blood Pressure Mean BP Systolic 125 BP Diastolic 65 Blood Pressure Source Blood Pressure Position Blood Pressure Location Pulse Ox 97 Oxygen Delivery Method 03/27/24 04:27 03/27/24 04:27 03/27/24 04:30 Temperature Temperature Source Pulse Rate 74 85 Respiratory Rate 17 Respiratory Effort Normal Respiratory Depth Normal Respiratory Pattern Normal Blood Pressure 147/95 H Blood Pressure Mean 112 BP Systolic BP Diastolic Blood Pressure Source Monitor Blood Pressure Position Semi-Fowlers Blood Pressure Location Left Arm Pulse Ox 97 98 Oxygen Delivery Method Room Air 03/27/24 04:32 03/27/24 04:32 03/27/24 04:41 Temperature Temperature Source Pulse Rate 75 83 Respiratory Rate Respiratory Effort Respiratory Depth Respiratory Pattern Blood Pressure Blood Pressure Mean BP Systolic BP Diastolic Blood Pressure Source Blood Pressure Position Blood Pressure Location Pulse Ox 97 Oxygen Delivery Method 03/27/24 04:41 03/27/24 04:41 03/27/24 04:41 Temperature Temperature Source Pulse Rate 84 Respiratory Rate Respiratory Effort Respiratory Depth Respiratory Pattern Blood Pressure 147/95 H Blood Pressure Mean BP Systolic 147 BP Diastolic 95 Blood Pressure Source Blood Pressure Position Blood Pressure Location Pulse Ox 98 Oxygen Delivery Method 03/27/24 04:46 03/27/24 04:46 03/27/24 04:51 Temperature Temperature Source Pulse Rate 87 85 Respiratory Rate Respiratory Effort Respiratory Depth Respiratory Pattern Blood Pressure Blood Pressure Mean BP Systolic BP Diastolic Blood Pressure Source Blood Pressure Position Blood Pressure Location Pulse Ox 99 Oxygen Delivery Method 03/27/24 04:51 03/27/24 04:55 03/27/24 04:55 Temperature Temperature Source Pulse Rate 85 Respiratory Rate Respiratory Effort Respiratory Depth Respiratory Pattern Blood Pressure 141/92 H Blood Pressure Mean BP Systolic 141 BP Diastolic 92 Blood Pressure Source Blood Pressure Position Blood Pressure Location Pulse Ox 100 Oxygen Delivery Method 03/27/24 04:56 03/27/24 04:56 03/27/24 05:07 Temperature Temperature Source Pulse Rate 86 104 H Respiratory Rate Respiratory Effort Respiratory Depth Respiratory Pattern Blood Pressure Blood Pressure Mean BP Systolic BP Diastolic Blood Pressure Source Blood Pressure Position Blood Pressure Location Pulse Ox 99 Oxygen Delivery Method 03/27/24 05:07 03/27/24 05:10 03/27/24 05:10 Temperature Temperature Source Pulse Rate 95 Respiratory Rate Respiratory Effort Respiratory Depth Respiratory Pattern Blood Pressure 137/88 H Blood Pressure Mean BP Systolic 137 BP Diastolic 88 Blood Pressure Source Blood Pressure Position Blood Pressure Location Pulse Ox 100 Oxygen Delivery Method 03/27/24 05:12 03/27/24 05:12 03/27/24 05:17 Temperature Temperature Source Pulse Rate 100 102 H Respiratory Rate Respiratory Effort Respiratory Depth Respiratory Pattern Blood Pressure Blood Pressure Mean BP Systolic BP Diastolic Blood Pressure Source Blood Pressure Position Blood Pressure Location Pulse Ox 98 Oxygen Delivery Method 03/27/24 05:17 03/27/24 05:18 03/27/24 05:18 Temperature Temperature Source Pulse Rate 94 Respiratory Rate Respiratory Effort Respiratory Depth Respiratory Pattern Blood Pressure 139/90 H Blood Pressure Mean BP Systolic 139 BP Diastolic 90 Blood Pressure Source Blood Pressure Position Blood Pressure Location Pulse Ox 98 Oxygen Delivery Method 03/27/24 05:18 03/27/24 05:22 03/27/24 05:22 Temperature Temperature Source Pulse Rate 95 88 Respiratory Rate 16 Respiratory Effort Respiratory Depth Respiratory Pattern Blood Pressure 139/90 H Blood Pressure Mean 106 BP Systolic BP Diastolic Blood Pressure Source Monitor Blood Pressure Position Sitting Blood Pressure Location Left Arm Pulse Ox 98 98 Oxygen Delivery Method Room Air 03/27/24 05:25 03/27/24 05:25 03/27/24 05:27 Temperature Temperature Source Pulse Rate 101 H 93 Respiratory Rate Respiratory Effort Respiratory Depth Respiratory Pattern Blood Pressure 132/84 H Blood Pressure Mean BP Systolic 132 BP Diastolic 84 Blood Pressure Source Blood Pressure Position Blood Pressure Location Pulse Ox Oxygen Delivery Method 03/27/24 05:27 03/27/24 05:32 03/27/24 05:32 Temperature Temperature Source Pulse Rate 86 Respiratory Rate Respiratory Effort Respiratory Depth Respiratory Pattern Blood Pressure Blood Pressure Mean BP Systolic BP Diastolic Blood Pressure Source Blood Pressure Position Blood Pressure Location Pulse Ox 100 98 Oxygen Delivery Method 03/27/24 05:37 03/27/24 05:37 03/27/24 05:40 Temperature Temperature Source Pulse Rate 81 Respiratory Rate Respiratory Effort Respiratory Depth Respiratory Pattern Blood Pressure 128/79 H Blood Pressure Mean BP Systolic 128 BP Diastolic 79 Blood Pressure Source Blood Pressure Position Blood Pressure Location Pulse Ox 98 Oxygen Delivery Method 03/27/24 05:40 03/27/24 05:42 03/27/24 05:42 Temperature Temperature Source Pulse Rate 81 92 Respiratory Rate Respiratory Effort Respiratory Depth Respiratory Pattern Blood Pressure Blood Pressure Mean BP Systolic BP Diastolic Blood Pressure Source Blood Pressure Position Blood Pressure Location Pulse Ox 99 Oxygen Delivery Method 03/27/24 05:47 03/27/24 05:47 03/27/24 05:52 Temperature Temperature Source Pulse Rate 82 81 Respiratory Rate Respiratory Effort Respiratory Depth Respiratory Pattern Blood Pressure Blood Pressure Mean BP Systolic BP Diastolic Blood Pressure Source Blood Pressure Position Blood Pressure Location Pulse Ox 98 Oxygen Delivery Method 03/27/24 05:52 03/27/24 05:55 03/27/24 05:55 Temperature Temperature Source Pulse Rate 76 Respiratory Rate Respiratory Effort Respiratory Depth Respiratory Pattern Blood Pressure 132/80 H Blood Pressure Mean BP Systolic 132 BP Diastolic 80 Blood Pressure Source Blood Pressure Position Blood Pressure Location Pulse Ox 98 Oxygen Delivery Method 03/27/24 05:57 03/27/24 05:57 03/27/24 06:02 Temperature Temperature Source Pulse Rate 77 77 Respiratory Rate Respiratory Effort Respiratory Depth Respiratory Pattern Blood Pressure Blood Pressure Mean BP Systolic BP Diastolic Blood Pressure Source Blood Pressure Position Blood Pressure Location Pulse Ox 98 Oxygen Delivery Method 03/27/24 06:02 03/27/24 06:07 03/27/24 06:07 Temperature Temperature Source Pulse Rate 75 Respiratory Rate Respiratory Effort Respiratory Depth Respiratory Pattern Blood Pressure Blood Pressure Mean BP Systolic BP Diastolic Blood Pressure Source Blood Pressure Position Blood Pressure Location Pulse Ox 97 97 Oxygen Delivery Method 03/27/24 06:10 03/27/24 06:10 03/27/24 06:12 Temperature Temperature Source Pulse Rate 73 74 Respiratory Rate Respiratory Effort Respiratory Depth Respiratory Pattern Blood Pressure 128/69 H Blood Pressure Mean BP Systolic 128 BP Diastolic 69 Blood Pressure Source Blood Pressure Position Blood Pressure Location Pulse Ox Oxygen Delivery Method 03/27/24 06:12 03/27/24 06:17 03/27/24 06:17 Temperature Temperature Source Pulse Rate 76 Respiratory Rate Respiratory Effort Respiratory Depth Respiratory Pattern Blood Pressure Blood Pressure Mean BP Systolic BP Diastolic Blood Pressure Source Blood Pressure Position Blood Pressure Location Pulse Ox 97 97 Oxygen Delivery Method 03/27/24 06:22 03/27/24 06:22 03/27/24 06:25 Temperature Temperature Source Pulse Rate 74 Respiratory Rate Respiratory Effort Respiratory Depth Respiratory Pattern Blood Pressure 129/73 H Blood Pressure Mean BP Systolic 129 BP Diastolic 73 Blood Pressure Source Blood Pressure Position Blood Pressure Location Pulse Ox 98 Oxygen Delivery Method 03/27/24 06:25 03/27/24 06:25 03/27/24 06:27 Temperature Temperature Source Pulse Rate 73 78 76 Respiratory Rate 17 Respiratory Effort Normal Respiratory Depth Normal Respiratory Pattern Normal Blood Pressure 129/73 H Blood Pressure Mean 91 BP Systolic BP Diastolic Blood Pressure Source Monitor Blood Pressure Position Semi-Fowlers Blood Pressure Location Left Arm Pulse Ox 97 Oxygen Delivery Method Room Air 03/27/24 06:27 03/27/24 06:32 03/27/24 06:32 Temperature Temperature Source Pulse Rate 66 Respiratory Rate Respiratory Effort Respiratory Depth Respiratory Pattern Blood Pressure Blood Pressure Mean BP Systolic BP Diastolic Blood Pressure Source Blood Pressure Position Blood Pressure Location Pulse Ox 97 98 Oxygen Delivery Method 03/27/24 06:37 03/27/24 06:37 03/27/24 06:40 Temperature Temperature Source Pulse Rate 69 Respiratory Rate Respiratory Effort Respiratory Depth Respiratory Pattern Blood Pressure 118/72 Blood Pressure Mean BP Systolic 118 BP Diastolic 72 Blood Pressure Source Blood Pressure Position Blood Pressure Location Pulse Ox 98 Oxygen Delivery Method 03/27/24 06:40 03/27/24 06:42 03/27/24 06:42 Temperature Temperature Source Pulse Rate 72 71 Respiratory Rate Respiratory Effort Respiratory Depth Respiratory Pattern Blood Pressure Blood Pressure Mean BP Systolic BP Diastolic Blood Pressure Source Blood Pressure Position Blood Pressure Location Pulse Ox 98 Oxygen Delivery Method 03/27/24 06:47 03/27/24 06:47 03/27/24 06:52 Temperature Temperature Source Pulse Rate 71 79 Respiratory Rate Respiratory Effort Respiratory Depth Respiratory Pattern Blood Pressure Blood Pressure Mean BP Systolic BP Diastolic Blood Pressure Source Blood Pressure Position Blood Pressure Location Pulse Ox 98 Oxygen Delivery Method 03/27/24 06:52 03/27/24 06:55 03/27/24 06:55 Temperature Temperature Source Pulse Rate 66 Respiratory Rate Respiratory Effort Respiratory Depth Respiratory Pattern Blood Pressure 135/76 H Blood Pressure Mean BP Systolic 135 BP Diastolic 76 Blood Pressure Source Blood Pressure Position Blood Pressure Location Pulse Ox 98 Oxygen Delivery Method 03/27/24 06:57 03/27/24 06:57 03/27/24 07:02 Temperature Temperature Source Pulse Rate 75 69 Respiratory Rate Respiratory Effort Respiratory Depth Respiratory Pattern Blood Pressure Blood Pressure Mean BP Systolic BP Diastolic Blood Pressure Source Blood Pressure Position Blood Pressure Location Pulse Ox 98 Oxygen Delivery Method 03/27/24 07:02 03/27/24 07:07 03/27/24 07:07 Temperature Temperature Source Pulse Rate 74 Respiratory Rate Respiratory Effort Respiratory Depth Respiratory Pattern Blood Pressure Blood Pressure Mean BP Systolic BP Diastolic Blood Pressure Source Blood Pressure Position Blood Pressure Location Pulse Ox 97 97 Oxygen Delivery Method 03/27/24 07:11 03/27/24 07:11 03/27/24 07:11 Temperature Temperature Source Pulse Rate 72 Respiratory Rate Respiratory Effort Respiratory Depth Respiratory Pattern Blood Pressure 118/72 Blood Pressure Mean BP Systolic 118 BP Diastolic 72 Blood Pressure Source Blood Pressure Position Blood Pressure Location Pulse Ox 98 Oxygen Delivery Method 03/27/24 07:17 03/27/24 07:17 03/27/24 07:22 Temperature Temperature Source Pulse Rate 75 73 Respiratory Rate Respiratory Effort Respiratory Depth Respiratory Pattern Blood Pressure Blood Pressure Mean BP Systolic BP Diastolic Blood Pressure Source Blood Pressure Position Blood Pressure Location Pulse Ox 97 Oxygen Delivery Method 03/27/24 07:22 03/27/24 07:25 03/27/24 07:25 Temperature Temperature Source Pulse Rate 72 Respiratory Rate Respiratory Effort Respiratory Depth Respiratory Pattern Blood Pressure 121/70 H Blood Pressure Mean BP Systolic 121 BP Diastolic 70 Blood Pressure Source Blood Pressure Position Blood Pressure Location Pulse Ox 98 Oxygen Delivery Method 03/27/24 07:27 03/27/24 07:27 03/27/24 07:30 Temperature Temperature Source Temporal Pulse Rate 75 Respiratory Rate Respiratory Effort Respiratory Depth Respiratory Pattern Blood Pressure Blood Pressure Mean BP Systolic BP Diastolic Blood Pressure Source Blood Pressure Position Blood Pressure Location Pulse Ox 97 Oxygen Delivery Method 03/27/24 07:30 03/27/24 07:32 03/27/24 07:32 Temperature 96.8 F L Temperature Source Temporal Pulse Rate 96 77 Respiratory Rate 16 Respiratory Effort Normal Non-Labored Respiratory Depth Normal Respiratory Pattern Normal Blood Pressure 146/88 H Blood Pressure Mean 107 BP Systolic BP Diastolic Blood Pressure Source Monitor Blood Pressure Position Semi-Fowlers Blood Pressure Location Left Arm Pulse Ox 98 98 Oxygen Delivery Method Room Air 03/27/24 07:36 03/27/24 07:36 03/27/24 07:44 Temperature Temperature Source Pulse Rate 103 H 86 Respiratory Rate Respiratory Effort Respiratory Depth Respiratory Pattern Blood Pressure 146/88 H Blood Pressure Mean BP Systolic 146 BP Diastolic 88 Blood Pressure Source Blood Pressure Position Blood Pressure Location Pulse Ox Oxygen Delivery Method 03/27/24 07:44 03/27/24 07:49 03/27/24 07:49 Temperature Temperature Source Pulse Rate 85 Respiratory Rate Respiratory Effort Respiratory Depth Respiratory Pattern Blood Pressure Blood Pressure Mean BP Systolic BP Diastolic Blood Pressure Source Blood Pressure Position Blood Pressure Location Pulse Ox 100 98 Oxygen Delivery Method 03/27/24 07:53 03/27/24 07:53 03/27/24 07:55 Temperature Temperature Source Pulse Rate 85 Respiratory Rate Respiratory Effort Respiratory Depth Respiratory Pattern Blood Pressure 124/74 H Blood Pressure Mean BP Systolic 124 BP Diastolic 74 Blood Pressure Source Blood Pressure Position Blood Pressure Location Pulse Ox 98 Oxygen Delivery Method 03/27/24 07:55 03/27/24 07:59 03/27/24 07:59 Temperature Temperature Source Pulse Rate 92 86 Respiratory Rate Respiratory Effort Respiratory Depth Respiratory Pattern Blood Pressure Blood Pressure Mean BP Systolic BP Diastolic Blood Pressure Source Blood Pressure Position Blood Pressure Location Pulse Ox 98 Oxygen Delivery Method 03/27/24 08:04 03/27/24 08:04 Temperature Temperature Source Pulse Rate 93 Respiratory Rate Respiratory Effort Respiratory Depth Respiratory Pattern Blood Pressure Blood Pressure Mean BP Systolic BP Diastolic Blood Pressure Source Blood Pressure Position Blood Pressure Location Pulse Ox 100 Oxygen Delivery Method Weight Weight: 78.018 kg Body Mass Index (BMI) 32.5 Physical Exam Const alert and no apparent distress General Appearance: cooperative HEENT normocephalic Resp normal respiratory effort Cardio regular rate GI soft to palpation GI Narrative: gravid, nontender, appropriate for gestational age Extremity no calf tenderness Skin no wounds Rashes: No rashes noted Psych activity/motor behavior normal Labs Labs Labs: Blood Type B POSITIVE Antibody Screen NEGATIVE Hct 29.5 % (37-47) L Hgb 10.3 g/dL (12.0-15.0) L Obstetrics Ultrasound Syphilis Total Ab Non-reactive Hep Bs Antigen Negative (Negative) Hepatitis C Ab (EIA) <0.1 s/co ratio (0.0-0.9) HIV 1&2 Antibody Non-Reactive (Nonreactive) Assessment & Plan (1) 37 weeks gestation of : (2) Pre-eclampsia affecting , antepartum: PLAN: Magnesium and procardia currently PLAN: Plan cytotec/ yi/ pit GBS negative Epidural prn
--- NOTE | 2024-03-27 08:12 | PCM.PN.OB ---
Subjective Subjective Aceves ballon placed without difficulty. 2/60/-2 posterior Objective Data Objective Data Vital Signs: Vital Signs Temp Pulse Resp BP Pulse Ox O2 Del Method 96.8 F L 116 H 16 136/90 H 91 Room Air 03/27/24 07:30 03/27/24 08:11 03/27/24 07:30 03/27/24 08:11 03/27/24 08:11 03/27/24 07:30 Oxygen Delivery Method Room Air Weight: 78.018 kg Body Mass Index (BMI) 32.5 Intake & Output: Intake and Output for Last 24 Hours 03/25/24 03/26/24 03/27/24 23:59 23:59 23:59 Intake Total 625 / 625 Output Total 1500 / 1500 Balance -875 / -875 Lab / Micro Data 03/26/24 22:40 03/26/24 22:40 Labs: Laboratory Results - last 24 hr 03/26/24 22:40: WBC 6.9, RBC 3.56 L, Hgb 10.3 L, Hct 29.5 L, MCV 82.9, MCH 28.9, MCHC 34.9, RDW Std Deviation 38.2, RDW Coeff of Ryley 12.7, Plt Count 186, MPV 11.9, Immature Gran % (Auto) 0.100, Neut % (Auto) 63.4, Lymph % (Auto) 27.2, [place] % (Auto) 5.8, Eos % (Auto) 2.9, Baso % (Auto) 0.6, Absolute Neuts (auto) 4.4, Absolute Lymphs (auto) 1.88, Nucleated RBC % 0, Creatinine 0.63, Estim Creat Clear Calc 133.54, Est GFR (MDRD) Af Amer 154, Est GFR (MDRD) Non-Af 127, Uric Acid 5.8, AST 16, ALT 12 L, Syphilis Total Ab Non-reactive, Blood Type B POSITIVE, Antibody Screen NEGATIVE 03/27/24 02:10: Urine Opiates Screen NEGATIVE, Urine Methadone Screen NEGATIVE, Ur Barbiturates Screen NEGATIVE, Ur Phencyclidine Scrn NEGATIVE, Ur Amphetamines Screen NEGATIVE, MDMA (Ecstasy) Screen NEGATIVE, U Benzodiazepines Scrn NEGATIVE, Urine Cocaine Screen NEGATIVE, U Cannabinoids Screen POSITIVE H, Ur Drug Screen Comment ROS Constitutional Constitutional: Denies fatigue, fever(s) or malaise Eyes Eyes: Denies change in vision ENT HEENT: Denies dizziness or headache(s) Cardiovascular Cardiovascular: Denies chest pain, dyspnea or lightheadedness Respiratory/Chest Respiratory/Chest: Denies cough or dyspnea Gastrointestinal Gastrointestinal: Denies change in bowel habits Genitourinary Genitourinary: Denies burning urination or genital lesions Integumentary Integumentary: Denies rash Neurologic Neurologic: Denies confusion, dizziness, headache(s), numbness or weakness Physical Exam Const alert and no apparent distress General Appearance: cooperative HEENT normocephalic Resp normal respiratory effort GI soft to palpation GI Narrative: gravid, nontender, appropriate for gestational age Psych activity/motor behavior normal NST FHR Rate Baby A Baseline: 120 Variability:: Moderate Accelerations:: 15 x 15 Decelerations:: None NST Reactive:: Yes FHR Category:: Category I Uterine Activity:: q2-4 Assessment & Plan (1) Pre-eclampsia affecting , antepartum: (2) 37 weeks gestation of : PLAN: Plan Aceves placed. AROM when able GBs negative Epidural Prn
[2024-03-27] MEDS: Ondansetron 4 MG/2 ML Vial IV ×3 (08:14→22:56)
--- NOTE | 2024-03-27 09:38 | PCM.PN.BLA ---
Progress Note Asked to evaluate patient b/c c/o back p ain. Sitting in chair reclined leaning to right on shoulder of support person. Neck and upper back pain better when mom massages it. No CP. No SOB. Vitals stable. MUsculoskeletal back pain. Check CXR b/c patient did feel a little SOB after coughing episode in bathroom earlier but unlikely pulmonary edema. Start pitocin. Epidural prn. If things change let us know
[2024-03-27] MEDS: Oxytocin 15 Units/NS 250ml 15 UNITS/250 ML IV.SOLN 2 UNITS IV (10:05)
--- NOTE | 2024-03-27 10:20 | RAD_ITS ---
STUDY: X-RAY CHEST REASON FOR EXAM: Female, 23 years old. Coughing, chest tightness in labor TECHNIQUE: Single AP portable view of the chest. COMPARISON: Comparison is made with prior study October 02, 2016. FINDINGS: The lungs are clear and expanded. There is no demonstrated pleural abnormality. Normal size heart. Normal mediastinum and luiz. Normal visualized pulmonary arteries. Normal visualized aortic arch and descending thoracic aorta. Normal visualized thoracic spine. Normal visualized ribs, clavicles, and shoulders. There is no demonstrated abnormality of the visualized soft tissue structures of the upper abdomen. RAD/Chest 1 View (Portable) IMPRESSION: Normal x-ray examination of the chest. Electronically Signed: Sameer Flaherty MD at 10:53 EST ,
[2024-03-27] MEDS: fentaNYL-bupivacaine (epidural) 100 ML BAG EPIDURAL ×2 (12:56→17:07)
[2024-03-27] MEDS: Lactated Ringers 1,000 ML 50 ML IV (17:05)
--- NOTE | 2024-03-27 19:23 | EX.PCM.OBVAG ---
Maternal Data Information TRI Calculator Estimated Delivery Date Method Current WG Current Estimate 04/16/24 Manual 37w 1d Vaginal Delivery Maternal Presentation Maternal Presentation: Medically Indicated Induction Type of Induction: Pitocin, Aceves Bulb, Amniotomy and Cytotec Medical Reason for Induction: Preeclampsia, eclampsia Vaginal Delivery Information Procedure Performed: Spontaneous Vaginal Delivery Surgeon/Practitioner: Sinai Wu Date of Procedure: 03/27/24 Pre-Procedure Diagnosis: Severe preeclampsia Post-Procedure Diagnosis: Same Type of anesthesia: Epidural Estimated Blood Loss: 200ml Findings Description of procedure: Called to room when patient C/C/+2. Sinai Wu CNM was in room as patient was pushing. She was prepped & draped. Patient pushed well to deliver the head. head was gently guided to allow delivery of anterior and posterior shoulders. No excess traction placed on the head. The body delivered. 3VC clamped and cut in delayed fashion. Placenta delivered with gentle traction and good uterine tone obtained. Delivery performed by MEÑO with my supervision and assistance. Presentation: NICOLÁS Amniotic Membrane Rupture Type: Artificial Amniotic Fluid Description: Clear Placental Delivery Description: Expressed Placenta Disposition: [facility] Cord Vessel Description: 3 Vessels Cord Entanglement: None Infant A Gender: Male (Ramirez) (1 minute): 8 (5 minute): 9 Delayed Cord Clamping: Yes Hardness Inspector serologist: Yes Well Services Operator: Becca Aggarwal Tasks completed by first aid instructor: Other (Supervision and assistance during pushing, delivery and immediate PP period) Additional clinical assistant?: No Post Vaginal Deli Medications given after delivery: IV Pitocin Episiotomy Description: None Laceration: None Complication Complications: No
[2024-03-27] MEDS: Oxytocin 15 Units/NS 250ml 15 UNITS/250 ML IV.SOLN 83 UNITS IV (19:45)
[2024-03-27] MEDS: Acetaminophen 500 MG Tablet 1000 MG PO (22:34)
[2024-03-27] MEDS: 0.9% Saline Lock 10 ML Syringe IV (22:56)
[2024-03-28] VITALS (21 sets, daily range): BP systolic 113–151; BP diastolic 73–104; PULSE 79–110; RESP 14–18; TEMP 36.2–37.1; O2SAT 97–100
[2024-03-28] MEDS: Magnesium Sulfate 20 GM/500 ML BAG IV ×2 (05:46→13:46)
[2024-03-28] MEDS: Acetaminophen 500 MG Tablet 1000 MG PO (09:47)
--- NOTE | 2024-03-28 11:45 | NURSING ---
phone call placed to [facility] office-spoke with nurse notified of pts c/o blurry vision and last 5 bp readings. waiting for return call
--- NOTE | 2024-03-28 11:55 | NURSING ---
dr juarez returned call- orders received
[2024-03-28] MEDS: NIFEdipine 10 MG Capsule PO (12:15)
[2024-03-28] MEDS: Ibuprofen 600 MG Tablet PO (13:37)
[2024-03-28] MEDS: NIFEdipine 60 MG Tablet PO (13:37)
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
--- NOTE | 2024-03-28 17:29 | PCM.PN.BLA ---
Progress Note Denies ESPINOSA or visual changes or epigastric pain> Average lochia. No n/V. Hungry Physical Exam Narrative 2+ edema, 1+ DTRs, no clonus Const alert and no apparent distress Narrative: Fundus firm, below umbilicus. Assessment & Plan Assessment/Plan (1) (spontaneous vaginal delivery): (2) Pre-eclampsia, severe, delivered with condition: PLAN: Increased Procardia maintenance to 60 mg daily today. DC magnesium after 24 hours after delivery. DC Aceves. May increased ambulation. Routine care. is doing well.
--- NOTE | 2024-03-28 17:53 | NURSING ---
1730 pt sl unsteady when walking back from the bathroom- pt told not to get up without a nurse.
[2024-03-29] VITALS (7 sets, daily range): BP systolic 130–135; BP diastolic 80–87; PULSE 71–96; RESP 14–16; TEMP 36.3–36.8; O2SAT 96–99
--- NOTE | 2024-03-29 07:03 | PCM.PN.OB ---
Subjective Subjective Doing well per patient and nursing staff. Ambulating and taking PO without difficulty. Voiding and passing flatus. Pain controlled. Denies headache, visual changes, chest pain, shortness of breath, leg pain or increased bleeding. Lochia normal. Objective Data Objective Data Vital Signs: Vital Signs Temp Pulse Resp BP Pulse Ox O2 Del Method 98.3 F 83 16 130/80 H 99 Room Air 03/29/24 04:14 03/29/24 04:14 03/29/24 04:14 03/29/24 04:14 03/29/24 04:14 03/29/24 04:14 Oxygen Delivery Method Room Air Weight: 172 lb Body Mass Index (BMI) 32.5 Intake & Output: Intake and Output for Last 24 Hours 03/27/24 03/28/24 03/29/24 23:59 23:59 23:59 Intake Total 2829.59 / 2829.59 2895.83 / 2895.83 Output Total 3728 / 3728 3325 / 3325 Balance -898.41 / -898.41 -429.17 / -429.17 Lab / Micro Data 03/26/24 22:40 03/26/24 22:40 ROS Constitutional Constitutional: Reports systems reviewed and no addt'l complaints, except as documented; Denies headache(s) Eyes Eyes: Denies acute decrease in peripheral vision, blurry vision or change in vision ENT HEENT: Reports systems reviewed and no addt'l complaints, except as documented Cardiovascular Cardiovascular: Denies chest pain or dizziness Respiratory/Chest Respiratory/Chest: Denies cough, dyspnea, dyspnea on exertion, shortness of breath at rest or shortness of breath with exertion Gastrointestinal Gastrointestinal: Denies abdominal pain, diarrhea, nausea or vomiting Genitourinary Genitourinary: Denies abdominal discomfort Musculoskeletal Musculoskeletal: Denies limited range of motion Integumentary Integumentary: Reports systems reviewed and no addt'l complaints, except as documented Neurologic Neurologic: Reports systems reviewed and no addt'l complaints, except as documented Psychiatric Psychiatric: Reports systems reviewed and no addt'l complaints, except as documented Endocrine Endocrinology: Reports systems reviewed and no addt'l complaints, except as documented Hematologic/Lymphatic Hematologic/Lymphatic: Reports systems reviewed and no addt'l complaints, except as documented Allergic/Immunologic Allergic/Immunologic: Reports systems reviewed and no addt'l complaints, except as documented Physical Exam Const alert and oriented x3 General Appearance: cooperative Orientation / Consciousness: awake, oriented to person, oriented to place and oriented to time Exam Limitations: no limitations HEENT normocephalic Head and Scalp: normal to inspection, normocephalic and atraumatic Face and Sinus: normal facial exam Eyes General Eye: normal appearance of both eyes Neck full ROM Chest Chest: symmetrical chest wall rise Resp normal respiratory effort and normal air movement Auscultation: clear to auscultation bilaterally Cardio regular rate, regular rhythm, S1 normal heart sound, S2 normal heart sound, no murmurs, no rub, no gallops and no clicks GI normal to inspection, nondistended, normoactive bowel sounds and non-tender appearance of the vagina normal Bladder / Kidney Exam: no CVA tenderness Back/Spine normal ROM Extremity normal to inspection and full ROM Skin no rashes or lesions noted Neuro oriented x3, CN's II-XII intact bilaterally and moves all extremities Sensorium / Orientation: awake, alert and oriented to person Motor Exam: clonus absent Deep Tendon Reflexes: Rt Patellar (L4): 2+ and Lt Patellar (L4): 2+ Assessment & Plan (1) Pre-eclampsia, severe, delivered with condition: (2) (spontaneous vaginal delivery): PLAN: Plan 1) Routine PPD#2 with pre eclampsia with severe features 2) Vitals stable, BP trending down. Magnesium stopped yesterday around 1900. Continue Procardia XL 60mg PO once daily 3) I&O 4) Pain management 5) services PRN 6) Planning D/C home tomorrow
[2024-03-29] MEDS: Ibuprofen 600 MG Tablet PO ×2 (09:08→20:56)
[2024-03-29] MEDS: Prenatal Vits Tablet 1 TABLET PO (09:09)
[2024-03-29] MEDS: NIFEdipine 60 MG Tablet PO (09:09)
[2024-03-30] VITALS (7 sets, daily range): BP systolic 124–146; BP diastolic 70–98; PULSE 63–84; RESP 16; TEMP 36.2–36.4; O2SAT 99
[2024-03-30] MEDS: Acetaminophen 500 MG Tablet 1000 MG PO (03:34)
[2024-03-30] MEDS: Prenatal Vits Tablet 1 TABLET PO (08:43)
[2024-03-30] MEDS: NIFEdipine 60 MG Tablet PO (08:43)
--- NOTE | 2024-03-30 10:41 | PCM.PN.OB ---
Subjective Subjective Doing well per patient and nursing staff. Ambulating and taking PO without difficulty. Voiding and passing flatus. Pain controlled. , services for assistance. Denies headache, visual changes, chest pain, shortness of breath, leg pain or increased bleeding. Lochia normal. Objective Data Objective Data Vital Signs: Vital Signs Temp Pulse Resp BP Pulse Ox O2 Del Method 97.2 F L 63 16 124/70 H 99 Room Air 03/30/24 08:20 03/30/24 09:36 03/30/24 08:20 03/30/24 09:36 03/30/24 08:20 03/30/24 08:20 Oxygen Delivery Method Room Air Weight: 172 lb Body Mass Index (BMI) 32.5 Intake & Output: Intake and Output for Last 24 Hours 03/28/24 03/29/24 03/30/24 23:59 23:59 23:59 Intake Total 2895.83 / 2895.83 Output Total 3325 / 3325 240 / 240 Balance -429.17 / -429.17 -240 / -240 Lab / Micro Data 03/26/24 22:40 03/26/24 22:40 ROS Constitutional Constitutional: Reports systems reviewed and no addt'l complaints, except as documented; Denies headache(s) Eyes Eyes: Denies acute decrease in peripheral vision, blurry vision or change in vision ENT HEENT: Reports systems reviewed and no addt'l complaints, except as documented Cardiovascular Cardiovascular: Denies chest pain or dizziness Respiratory/Chest Respiratory/Chest: Denies cough, dyspnea, dyspnea on exertion, shortness of breath at rest or shortness of breath with exertion Gastrointestinal Gastrointestinal: Denies abdominal pain, diarrhea, nausea or vomiting Genitourinary Genitourinary: Denies abdominal discomfort Musculoskeletal Musculoskeletal: Denies limited range of motion Integumentary Integumentary: Reports systems reviewed and no addt'l complaints, except as documented Neurologic Neurologic: Reports systems reviewed and no addt'l complaints, except as documented Psychiatric Psychiatric: Reports systems reviewed and no addt'l complaints, except as documented Endocrine Endocrinology: Reports systems reviewed and no addt'l complaints, except as documented Hematologic/Lymphatic Hematologic/Lymphatic: Reports systems reviewed and no addt'l complaints, except as documented Allergic/Immunologic Allergic/Immunologic: Reports systems reviewed and no addt'l complaints, except as documented Physical Exam Const alert and oriented x3 General Appearance: cooperative Orientation / Consciousness: awake, oriented to person, oriented to place and oriented to time Exam Limitations: no limitations HEENT normocephalic Head and Scalp: normal to inspection, normocephalic and atraumatic Face and Sinus: normal facial exam Eyes General Eye: normal appearance of both eyes Neck full ROM Chest Chest: symmetrical chest wall rise Resp normal respiratory effort and normal air movement Auscultation: clear to auscultation bilaterally Cardio regular rate, regular rhythm, S1 normal heart sound, S2 normal heart sound, no murmurs, no rub, no gallops and no clicks GI normal to inspection, nondistended, normoactive bowel sounds and non-tender appearance of the vagina normal Bladder / Kidney Exam: no CVA tenderness Back/Spine normal ROM Extremity normal to inspection and full ROM Skin no rashes or lesions noted Neuro oriented x3, CN's II-XII intact bilaterally and moves all extremities Sensorium / Orientation: awake, alert and oriented to person Motor Exam: clonus absent Deep Tendon Reflexes: Rt Patellar (L4): 2+ and Lt Patellar (L4): 2+ Assessment & Plan (1) Pre-eclampsia, severe, delivered with condition: (2) (spontaneous vaginal delivery): PLAN: Plan 1) Routine care, PPD #3 2) Vitals signs stable 3) Pain controlled 4) , services PRN 5) D/C home 6) BP stable, continue Procardia Xl 60mg PO once daily. Follow up in 2-3 days for BP check and 6 weeks
--- NOTE | 2024-03-30 10:43 | PCM.DC.SUM ---
Providers Date of Admission: 03/26/24 Primary Care Physician: Gege Primary Care Phys Reason For Visit: VAG Diagnosis Discharge Diagnosis (1) Pre-eclampsia, severe, delivered with condition: Status: Acute Code(s): O14.15 - Severe pre-eclampsia, complicating the puerperium (2) (spontaneous vaginal delivery): Status: Acute Code(s): O80 - Encounter for full-term uncomplicated delivery Plan 1) Routine care, PPD #3 2) Vitals signs stable 3) Pain controlled 4) , services PRN 5) D/C home 6) BP stable, continue Procardia Xl 60mg PO once daily. Follow up in 2-3 days for BP check and 6 weeks Medications at Discharge Home Medications albuterol sulfate 90 mcg/actuation aerosol inhaler 1 - 2 puff inhalation Q6H PRN PRN Asthma 06/16/20 vit no.95-ferrous fumarate 28 mg-folic acid 800 mcg tablet () 1 tab PO DAILY see provider 03/23/24 acetaminophen 500 mg tablet 1,000 mg (2 x 500 mg) PO Q6H PRN PRN Pain 1-10 Or Fever #0 tabs 03/30/24 ibuprofen 600 mg tablet 600 mg PO Q6H PRN PRN Pain Score 1-10 #0 tabs 03/30/24 nifedipine 60 mg tablet,extended release 24 hr 60 mg PO DAILY #30 tabs 03/30/24 Hospital Course Summary of Care Provided Minutes Spent on Discharge: 15 Hospital Course: Presented for induction of labor on 03/26 for preeclampsia. on 03/27. D/C home on PPD #3. Weight / BMI Weight Weight: 172 lb Body Mass Index (BMI) 32.5 ABG / Lab / Microbiology Data 03/26/24 22:40 03/26/24 22:40 D/C Instructions Discharge Diet: No restrictions Discharge Activity: Return to Normal Activity, May Drive, May Shower and May Take a Tub Bath May resume sexual activity in: 6 weeks Weight Bearing Status: Full weight bearing Call your doctor if you observe: Fever of 101 or Higher, Inability to urinate, Using more than 1 pad per hour, Shortness of breath, Chest pain, Increased palpitations (irregular heartbeat), Calf discomfort and Uncontrolled pain Please Follow Up With: Chrissy Ortiz CNM When: 2 week virtual visit and 6 week visit Meaningful Use Info Meaningful Use Meaningful Use Diagnoses (Choose all that apply): None applicable Ischemic Stroke Statin Dosing Therapy Reference: STATIN DOSE THERAPY REFERENCE: * Patients > 75 years receive moderate or high dose statin therapy. * Patients 75 years or YOUNGER should receive HIGH intensity statin dose unless contraindicated. You will be required to document reason for non-treatment if statin daily dose does not meet guidelines. HIGH DOSE STATIN THERAPY DAILY Atorvastatin > than or = to 40 mg Rosuvastatin > than or = to 20 mg Amlodipine + Atorvastatin > than or = to 2.5/40 mg Ezetimibe + Simvastatin 10/80 mg Simvastatin 80mg Discharge Plan Admission Admit Date/Time: 03/26/24 22:09 Primary Reason for Your Visit: Vaginal Delivery Attending Provider: Sinai Wu Primary Care Provider: Care Physician,Gege Primary Discharge Orders/Prescriptions Prescriptions: New nifedipine 60 mg Tablet Extended Release 24hr 60 mg PO DAILY Qty: 30 1RF acetaminophen 500 mg Tablet 1,000 mg PO Q6H PRN PRN (Reason: Pain 1-10 Or Fever) Qty: 0 0RF ibuprofen 600 mg Tablet 600 mg PO Q6H PRN PRN (Reason: Pain Score 1-10) Qty: 0 0RF Continued albuterol sulfate 1 PUFF inhaler 1 - 2 puff INHALATION Q6H PRN PRN (Reason: Asthma) PNV cmb#95-ferrous fumarate-FA [] 28 mg iron- 800 mcg tablet 1 tab PO DAILY Referrals / Follow Up: Care Physician,No Primary [Primary Care Provider] - Disposition Disposition (needs filled in before D/C Order can be placed): Home, Self Care
--- NOTE | 2024-04-10 07:10 | EX.PCM.OBVAG ---
Assessment & Plan (1) (spontaneous vaginal delivery): (2) Pre-eclampsia affecting , antepartum: (3) 37 weeks gestation of : Maternal Data Information TRI Calculator Estimated Delivery Date Method Current WG Current Estimate 04/16/24 Manual 39w 1d Vaginal Delivery Maternal Presentation Maternal Presentation: Medically Indicated Induction Type of Induction: Pitocin, Aceves Bulb, Amniotomy and Cytotec Medical Reason for Induction: Preeclampsia, eclampsia Vaginal Delivery Information Procedure Performed: Spontaneous Vaginal Delivery Surgeon/Practitioner: Sinai Wu Date of Procedure: 03/27/24 Pre-Procedure Diagnosis: Term gestation, preeclampsia Post-Procedure Diagnosis: , Live Type of anesthesia: Epidural Estimated Blood Loss: 200 Findings Description of procedure: Provided bedside assistance while pushing. Patient progressed to complete dilation. With good maternal effort, head delivered followed by anterior shoulder and remainder of infant body without any force, delay, or traction. Vigorous male was delivered atraumatically and placed on maternal abdomen. Pitocin IV started for active management of the third stage of labor. 3 vessel cord clamped and cut after delay and infant placed immediately skin to skin with patient. Placenta delivered spontaneously and intact. After inspection, vagina and perineum are intact. Vaginal sweep performed. Fundus is firm 2 below U and bleeding is hemostatic. Sponge and sharps counts correct. Patient and bonding well at this time. Dr. Aggarwal present in room for delivery and immediate PP. Presentation: Vertex Amniotic Membrane Rupture Type: Artificial Amniotic Fluid Description: Clear Placental Delivery Description: Spontaneous Placenta Disposition: [facility] Specimen collected: No Cord Vessel Description: 3 Vessels Cord Entanglement: None Nuchal Cord Compression: Without compression A Gender: Male (1 minute): 8 (5 minute): 9 Delayed Cord Clamping: Yes [employer] sales manager: No Post Vaginal Deli Medications given after delivery: IV Pitocin Episiotomy Description: None Laceration: None Complication Complications: No
== END 2024-03-30 11:13 | disposition home or self-care (01) | DRG 560 ==
PROVIDERS: Obstetrics & Gynecology; Admitting Provider Advanced Practice Midwife; Visit Provider Advanced Practice Midwife
DX: O14.14 Severe pre-eclampsia complicating childbirth (principal); Z37.0 Single live birth; F17.210 Nicotine dependence, cigarettes, uncomplicated; J45.909 Unspecified asthma, uncomplicated; Z3A.37 37 weeks gestation of pregnancy; O99.334 Smoking (tobacco) complicating childbirth; O99.52 Diseases of the respiratory system complicating childbirth
CPT/HCPCS: 59025; 59050; 71045; 80307; 81001; 82565; 82570; 83615; 84112; 84156; 84450; 84460; 84550; 85025; 85027; 85610; 85730; 86780; 86850; 86900; 86901; 99221; J7120; A4216; G0378; J2405